=== PATIENT | male | born 1965 | race Hispanic/Latino ===

== ENCOUNTER 2018-01-21 18:30 | Inpatient (IN) | payer BC ==
[2018-01-21 22:22] VITALS: BMI 23.7
--- NOTE | 2018-01-21 23:49 | CP.PCM.HP ---
History of Present Illness - History of Present Illness History of Present Illness: CC: IV abx after PNA and L pleural effusion HPI: This is a 52 y/o male with HLD, hypothyroid, and bipolar disorder who was brought here from [facility] where he was being worked up and treated for a PNA and L pleural effusion. He was found to be positive for Mycoplasma IgM, sputum positive for S. aureus, and tissue cultures with S. viridians. Patient had a thoracotomy with decortication and empyema evacuation. He is here for continuation of abx per the following schedule: Zosyn 3.375 grams IV Q8H for 14 days (stop 02/14/2018) Azithromycin 500 mg PO daily for 10 days (stop 01/30/2018) Patient has no c/c at this time. Denies f/c/n/v/d. ROS: 14 systems reviewed, negative other than HPI MHx: HLD, hypothyroid, bipolar SHx: L thoracotomy, recent Allergies: NKDA, some food allergies Medications: Per d/c med rec Family Hx: F- HTN, M- cancer Social Hx: Lives alone, no tobacco, no EtOH Present on Admission - Present on Admission Any Indicators Present on Admission: No Past Patient History - Past Medical History & Family History Past Medical History?: Yes - Past Social History Smoking Status: Former Smoker - CARDIAC Hx Cardiac Disorders: Yes Hx Hypercholesterolemia: Yes - PULMONARY Hx Respiratory Disorders: No Other/Comment: s/p chest tube - NEUROLOGICAL Hx Neurological Disorder: No - HEENT Hx HEENT Problems: No - RENAL Hx Chronic Kidney Disease: No - ENDOCRINE/METABOLIC Hx Hypothyroidism: Yes - HEMATOLOGICAL/ONCOLOGICAL Hx Blood Disorders: No Hx Anemia: Yes Hx Blood Transfusions: Yes - INTEGUMENTARY Hx Dermatological Problems: No - MUSCULOSKELETAL/RHEUMATOLOGICAL Hx Falls: No - GASTROINTESTINAL Hx Gastrointestinal Disorders: No - GENITOURINARY/GYNECOLOGICAL Hx Genitourinary Disorders: No - PSYCHIATRIC Hx Psychophysiologic Disorder: Yes Hx Bipolar Disorder: Yes Hx Substance Use: No - SURGICAL HISTORY Hx Surgeries: No - ANESTHESIA Hx Anesthesia: Yes Hx Anesthesia Reactions: No Hx Malignant Hyperthermia: No Meds Allergies/Adverse Reactions: Allergies Allergy/AdvReac Type Severity Reaction Status Date / Time lentils Allergy Verified 01/12/18 18:02 peanut Allergy Verified 01/12/18 18:02 peas Allergy Verified 01/12/18 18:02 soybean Allergy Verified 01/12/18 18:02 [place] Allergy Uncoded 01/12/18 18:02 Physical Exam - Constitutional Appears: No Acute Distress - Head Exam Head Exam: ATRAUMATIC, NORMOCEPHALIC - Eye Exam Eye Exam: EOMI, PERRL - ENT Exam ENT Exam: Mucous Membranes Moist - Respiratory Exam Respiratory Exam: Rhonchi, NORMAL BREATHING PATTERN - Cardiovascular Exam Cardiovascular Exam: REGULAR RHYTHM, +S1, +S2 - GI/Abdominal Exam GI & Abdominal Exam: Normal Bowel Sounds, Soft - Extremities Exam Extremities exam: Positive for: full ROM, normal inspection - Neurological Exam Neurological exam: Alert, CN II-XII Intact, Oriented x3 - Psychiatric Exam Psychiatric exam: Normal Affect, Normal Mood - Skin Skin Exam: Dry, Warm Results - Vital Signs Recent Vital Signs: Last Vital Signs Temp 98.1 F 01/21/18 22:46 Pulse 60 01/21/18 22:46 Resp 20 01/21/18 22:46 BP 137/63 01/21/18 22:46 Pulse Ox 97 01/21/18 22:46 Assessment & Plan (1) Pneumonia Assessment and Plan: 52 y/o male with hypothyroid, HLD, and bipolar disorder who comes for IV abx treatment to TCU. -Continue Azithro PO and Zosyn IV per schedule specified in d/c summary and in this HPI -Duonebs PRN -Pain control per scale -Cont home HLD and hypothyroid medications -Patient was told to start Fe treatment for anemia; can be started in next few days if o/w stable -CBC and CMP to f/u on WC, Na, and LFTs -SQ lovenox for DVT PPx Status: Resolved (2) Pleural effusion Status: Resolved (3) DVT prophylaxis Status: Acute
[2018-01-22] MEDS ORDERED: Piperacillin/Tazobact 3.375 GM in Sodium Chloride 0.9% 100 ML IVPB SCH
[2018-01-22] MEDS: Oxycodone/Acetaminophen 5/325 mg Tab PO PRN ×4 (00:11→21:07)
[2018-01-22] MEDS: QUETIAPINE 400 MG PO SCH ×2 (00:32→21:03)
[2018-01-22] MEDS: QUETIAPINE 50 MG PO SCH ×2 (00:32→21:03)
[2018-01-22] MEDS: Piperacillin/Tazobact 3.375 GM in Sodium Chloride 0.9% 100 ML IVPB SCH ×3 (01:01→16:43)
[2018-01-22] MEDS: Albuterol-Ipratrop 3 mg / 0.5 (3 ml) UD INH SCH ×6 (01:16→19:26)
[2018-01-22 06:00] LABS: HEMOGLOBIN 8.6 g/dL (12.0-18.0); MEAN CORPUSCULAR HEMOGLOBIN 26.3 pg (27.0-31.0); MEAN CORPUSCULAR HGB CONC 31.7 g/dL (33.0-37.0); RBC 3.25 Mil/uL (4.40-5.90); RED CELL DISTRIBUTION WIDTH 17.8 % (11.5-14.5); WHITE BLOOD COUNT 5.7 K/uL (4.8-10.8)
[2018-01-22 06:19] LABS: ALB/GLOB RATIO 0.7 (1.0-2.1); ALBUMIN 2.2 g/dL (3.5-5.0); ALT/SGPT 53 U/L (21-72); AST/SGOT 51 U/L (17-59); BLOOD UREA NITROGEN 5 mg/dl (9-20); GFR NON-AFRICAN AMERICAN > 60
[2018-01-22] MEDS: Levothyroxine 175 MCG TAB PO SCH (07:30)
[2018-01-22] MEDS: Lactobacillus Acidophilus 500 MU Cap PO SCH ×2 (08:25→16:39)
[2018-01-22] MEDS: Enoxaparin 40 mg Syringe SC SCH (08:26)
[2018-01-22] MEDS: FATTY ACIDS PO SCH ×2 (08:27→16:40)
[2018-01-22] MEDS: OMEGA PO SCH ×2 (08:27→16:40)
[2018-01-22] MEDS: FISH OIL PO SCH ×2 (08:27→16:40)
[2018-01-22] MEDS ORDERED: LAMOTRIGINE 400 MG PO SCH (09:00)
[2018-01-22] MEDS ORDERED: NIACIN 1000 MG PO SCH (09:00)
[2018-01-22] MEDS: NIACINAMIDE 500 MG TAB PO SCH (12:57)
[2018-01-22] MEDS: Pantoprazole 40 mg EC Tab PO SCH (12:58)
--- NOTE | 2018-01-22 14:44 | CP.PCM.PN ---
Subjective - Date & Time of Evaluation Date of Evaluation: 01/22/18 Time of Evaluation: 13:00 - Subjective Subjective: Patient seen and examined. Feeling better although still appeared weak and tired. Objective - Vital Signs/Intake and Output Vital Signs (last 24 hours): Temp Pulse Resp BP Pulse Ox 96.6 F L 90 20 120/74 98 01/22/18 09:09 01/22/18 13:06 01/22/18 09:09 01/22/18 09:09 01/22/18 13:06 - Medications Medications: Current Medications Albuterol/Ipratropium (Duoneb 3 Mg/0.5 Mg (3 Ml) Ud) 3 ml INH RQ4 [facility] Last Admin: 01/22/18 11:21 Dose: 3 ml Azithromycin (Zithromax) 500 mg PO DAILY [facility] PRN Reason: Protocol Last Admin: 01/22/18 08:27 Dose: 500 mg Docusate Sodium (Colace) 100 mg PO BID [facility] Last Admin: 01/22/18 08:25 Dose: 100 mg Enoxaparin Sodium (Lovenox) 40 mg SC DAILY [facility] PRN Reason: Protocol Last Admin: 01/22/18 08:26 Dose: 40 mg Fenofibrate (Tricor) 145 mg PO QPM [facility] Home Med ([place]-3 Fatty Acids/Fish Oil [Fish Oil 1,000 Mg Capsule]) 2 cap PO BID [facility] Last Admin: 01/22/18 08:27 Dose: 2 cap Home Med (Quetiapine [Seroquel Xr]) 400 mg PO HS [facility] Last Admin: 01/22/18 00:32 Dose: 400 mg Home Med (Quetiapine [Seroquel Xr]) 50 mg PO HS [facility] Last Admin: 01/22/18 00:32 Dose: 50 mg Piperacillin Sod/Tazobactam (Sod 3.375 gm/ Sodium Chloride) 100 mls @ 100 mls/ hr IVPB Q8H [facility] PRN Reason: Protocol Last Admin: 01/22/18 08:25 Dose: 100 mls/hr Lactobacillus Acidophilus (Bacid Acidophilus) 1 cap PO BID [facility] Last Admin: 01/22/18 08:25 Dose: 1 cap Lamotrigine (Lamictal) 400 mg PO DAILY [facility] Last Admin: 01/22/18 08:26 Dose: 400 mg Levothyroxine Sodium (Synthroid) 175 mcg PO DAILY@0630 [facility] Last Admin: 01/22/18 07:30 Dose: 175 mcg Montelukast Sodium (Singulair) 10 mg PO [facility] Niacinamide (Niacinamide) 1,000 mg PO DAILY [facility] Last Admin: 01/22/18 12:57 Dose: 1,000 mg Oxycodone/Acetaminophen (Percocet 5/325 Mg Tab) 1 tab PO Q4 PRN PRN Reason: Pain, moderate (4-7) Stop: 01/24/18 23:52 Last Admin: 01/22/18 08:27 Dose: 1 tab Oxycodone/Acetaminophen (Percocet 5/325 Mg Tab) 2 tab PO Q4H PRN PRN Reason: Pain, severe (8-10) Stop: 01/24/18 23:52 Last Admin: 01/22/18 14:13 Dose: 2 tab Pantoprazole Sodium (Protonix Ec Tab) 40 mg PO DAILY [facility] Last Admin: 01/22/18 12:58 Dose: 40 mg - Labs Labs: 01/22/18 05:47 01/22/18 05:47 - Constitutional Appears: No Acute Distress - Head Exam Head Exam: ATRAUMATIC - Eye Exam Eye Exam: absent: Scleral icterus - ENT Exam ENT Exam: Mucous Membranes Moist - Neck Exam Neck Exam: absent: Meningismus - Respiratory Exam Respiratory Exam: Decreased Breath Sounds. absent: Wheezes, Respiratory Distress - Cardiovascular Exam Cardiovascular Exam: REGULAR RHYTHM, +S1, +S2 - GI/Abdominal Exam GI & Abdominal Exam: Soft. absent: Tenderness - Rectal Exam Rectal Exam: Deferred - Extremities Exam Extremities Exam: Pedal Edema - Neurological Exam Neurological Exam: Alert, Oriented x3 - Psychiatric Exam Psychiatric exam: Normal Affect - Skin Skin Exam: Dry, Intact Assessment and Plan - Assessment and Plan (Free Text) Assessment: 52 yo male with history of Bipolar DO, Hypothyroid and HLD was transferred from [facility] after thoracotomy with decortication and empyema evacuation for purpose of continuation of IV antibiotics. He was found to be positive for Mycoplasma IgM in the blood, Stap aureus in sputum culture and Strep viridans in lung tissue culture. He was started on IV Zosyn (to DC on 02/14/18) and PO Zithromax (DC on 01/30/18). 1. Pneumonia with Empyema left lung empyema drained on 01/16/18 left lung decorticated, culture grew Strep Viridans continue IV Zosyn and PO Zithromax 2. Hypothyroid continue Levothyroxine 175mcg PO daily 3. Bipolar DO continue Seroquel XR 450mg PO HS
[2018-01-23] MEDS: Albuterol-Ipratrop 3 mg / 0.5 (3 ml) UD INH SCH ×7 (00:12→23:33)
[2018-01-23] MEDS: Piperacillin/Tazobact 3.375 GM in Sodium Chloride 0.9% 100 ML IVPB SCH ×4 (01:09→20:26)
[2018-01-23] MEDS: Levothyroxine 175 MCG TAB PO SCH (05:56)
[2018-01-23] MEDS: Oxycodone/Acetaminophen 5/325 mg Tab PO PRN ×2 (09:14→16:40)
[2018-01-23] MEDS: Lactobacillus Acidophilus 500 MU Cap PO SCH ×2 (09:15→17:21)
[2018-01-23] MEDS: FISH OIL PO SCH ×2 (09:16→17:21)
[2018-01-23] MEDS: NIACINAMIDE 500 MG TAB PO SCH (09:16)
[2018-01-23] MEDS: OMEGA PO SCH ×2 (09:16→17:21)
[2018-01-23] MEDS: FATTY ACIDS PO SCH ×2 (09:16→17:21)
[2018-01-23] MEDS: Pantoprazole 40 mg EC Tab PO SCH (09:21)
[2018-01-23] MEDS: Enoxaparin 40 mg Syringe SC SCH (11:08)
[2018-01-23] MEDS: QUETIAPINE 400 MG PO SCH (21:18)
[2018-01-23] MEDS: QUETIAPINE 50 MG PO SCH (21:19)
[2018-01-24] MEDS: Oxycodone/Acetaminophen 5/325 mg Tab PO PRN ×4 (04:34→22:14)
[2018-01-24] MEDS: Piperacillin/Tazobact 3.375 GM in Sodium Chloride 0.9% 100 ML IVPB SCH ×3 (04:37→22:00)
[2018-01-24] MEDS: Albuterol-Ipratrop 3 mg / 0.5 (3 ml) UD INH SCH ×5 (04:55→19:23)
[2018-01-24] MEDS: Levothyroxine 175 MCG TAB PO SCH (06:31)
[2018-01-24] MEDS: Lactobacillus Acidophilus 500 MU Cap PO SCH ×2 (08:39→16:27)
[2018-01-24] MEDS: Enoxaparin 40 mg Syringe SC SCH (08:40)
[2018-01-24] MEDS: NIACINAMIDE 500 MG TAB PO SCH (08:41)
[2018-01-24] MEDS: FATTY ACIDS PO SCH ×2 (08:42→16:28)
[2018-01-24] MEDS: OMEGA PO SCH ×2 (08:42→16:28)
[2018-01-24] MEDS: FISH OIL PO SCH ×2 (08:42→16:28)
[2018-01-24] MEDS: Pantoprazole 40 mg EC Tab PO SCH (08:55)
[2018-01-24] MEDS: QUETIAPINE 400 MG PO SCH (22:06)
[2018-01-24] MEDS: QUETIAPINE 50 MG PO SCH (22:06)
[2018-01-25] MEDS: Albuterol-Ipratrop 3 mg / 0.5 (3 ml) UD INH SCH ×7 (00:29→23:33)
[2018-01-25] MEDS: Piperacillin/Tazobact 3.375 GM in Sodium Chloride 0.9% 100 ML IVPB SCH ×3 (05:09→20:36)
[2018-01-25] MEDS: Levothyroxine 175 MCG TAB PO SCH (06:19)
[2018-01-25] MEDS: Lactobacillus Acidophilus 500 MU Cap PO SCH ×2 (08:41→16:43)
[2018-01-25] MEDS: FISH OIL PO SCH ×2 (08:42→16:43)
[2018-01-25] MEDS: Enoxaparin 40 mg Syringe SC SCH (08:42)
[2018-01-25] MEDS: OMEGA PO SCH ×2 (08:42→16:43)
[2018-01-25] MEDS: Oxycodone/Acetaminophen 5/325 mg Tab PO PRN ×3 (08:42→19:58)
[2018-01-25] MEDS: FATTY ACIDS PO SCH ×2 (08:42→16:43)
[2018-01-25] MEDS: Pantoprazole 40 mg EC Tab PO SCH (08:43)
[2018-01-25] MEDS: NIACINAMIDE 500 MG TAB PO SCH (08:44)
[2018-01-25] MEDS: QUETIAPINE 400 MG PO SCH (21:28)
[2018-01-25] MEDS: QUETIAPINE 50 MG PO SCH (21:28)
[2018-01-26] MEDS: Albuterol-Ipratrop 3 mg / 0.5 (3 ml) UD INH SCH ×6 (04:15→23:59)
[2018-01-26] MEDS: Piperacillin/Tazobact 3.375 GM in Sodium Chloride 0.9% 100 ML IVPB SCH ×3 (05:22→20:37)
[2018-01-26] MEDS: Oxycodone/Acetaminophen 5/325 mg Tab PO PRN ×4 (05:32→20:43)
[2018-01-26] MEDS: Levothyroxine 175 MCG TAB PO SCH (05:33)
[2018-01-26] MEDS: Lactobacillus Acidophilus 500 MU Cap PO SCH ×2 (08:43→17:11)
[2018-01-26] MEDS: Enoxaparin 40 mg Syringe SC SCH (08:44)
[2018-01-26] MEDS: OMEGA PO SCH ×2 (08:45→17:11)
[2018-01-26] MEDS: FISH OIL PO SCH ×2 (08:45→17:11)
[2018-01-26] MEDS: FATTY ACIDS PO SCH ×2 (08:45→17:11)
[2018-01-26] MEDS: NIACINAMIDE 500 MG TAB PO SCH (08:45)
[2018-01-26] MEDS: Pantoprazole 40 mg EC Tab PO SCH (08:48)
--- NOTE | 2018-01-26 15:57 | CP.PCM.CON ---
History of Present Illness - History of Present Illness History of Present Illness: 52 year old male with deconditioning, with generalized weakness status post thoracotomy, empyema evacuation, HLD, hypothyroidism, Bipolar disorder and pleural effusion Review of Systems - Musculoskeletal Musculoskeletal: Abnormal Gait, Muscle Weakness Past Patient History - Past Medical History & Family History Past Medical History?: Yes - Past Social History Smoking Status: Former Smoker - CARDIAC Hx Cardiac Disorders: Yes Hx Hypercholesterolemia: Yes - PULMONARY Hx Respiratory Disorders: No Other/Comment: s/p chest tube - NEUROLOGICAL Hx Neurological Disorder: No - HEENT Hx HEENT Problems: No - RENAL Hx Chronic Kidney Disease: No - ENDOCRINE/METABOLIC Hx Hypothyroidism: Yes - HEMATOLOGICAL/ONCOLOGICAL Hx Blood Disorders: No Hx Anemia: Yes Hx Blood Transfusions: Yes - INTEGUMENTARY Hx Dermatological Problems: No - MUSCULOSKELETAL/RHEUMATOLOGICAL Hx Falls: No - GASTROINTESTINAL Hx Gastrointestinal Disorders: No - GENITOURINARY/GYNECOLOGICAL Hx Genitourinary Disorders: No - PSYCHIATRIC Hx Psychophysiologic Disorder: Yes Hx Bipolar Disorder: Yes Hx Substance Use: No - SURGICAL HISTORY Hx Surgeries: No - ANESTHESIA Hx Anesthesia: Yes Hx Anesthesia Reactions: No Hx Malignant Hyperthermia: No Meds Allergies/Adverse Reactions: Allergies Allergy/AdvReac Type Severity Reaction Status Date / Time lentils Allergy Verified 01/12/18 18:02 peanut Allergy Verified 01/12/18 18:02 peas Allergy Verified 01/12/18 18:02 soybean Allergy Verified 01/12/18 18:02 [place] Allergy Uncoded 01/12/18 18:02 - Medications Medications: Current Medications Albuterol/Ipratropium (Duoneb 3 Mg/0.5 Mg (3 Ml) Ud) 3 ml INH RQ4 [facility] Last Admin: 01/26/18 15:26 Dose: 3 ml Azithromycin (Zithromax) 500 mg PO DAILY [facility] PRN Reason: Protocol Last Admin: 01/26/18 08:43 Dose: 500 mg Docusate Sodium (Colace) 100 mg PO BID [facility] Last Admin: 01/26/18 08:43 Dose: 100 mg Enoxaparin Sodium (Lovenox) 40 mg SC DAILY [facility] PRN Reason: Protocol Last Admin: 01/26/18 08:44 Dose: 40 mg Fenofibrate (Tricor) 145 mg PO QPM [facility] Last Admin: 01/25/18 18:08 Dose: 145 mg Home Med ([place]-3 Fatty Acids/Fish Oil [Fish Oil 1,000 Mg Capsule]) 2 cap PO BID [facility] Last Admin: 01/26/18 08:45 Dose: 2 cap Home Med (Quetiapine [Seroquel Xr]) 400 mg PO [facility] Last Admin: 01/25/18 21:28 Dose: 400 mg Home Med (Quetiapine [Seroquel Xr]) 50 mg PO [facility] Last Admin: 01/25/18 21:28 Dose: 50 mg Piperacillin Sod/Tazobactam (Sod 3.375 gm/ Sodium Chloride) 100 mls @ 100 mls/ hr IVPB Q8@0500,1300,2100 [facility] PRN Reason: Protocol Last Admin: 01/26/18 12:38 Dose: 100 mls/hr Lactobacillus Acidophilus (Bacid Acidophilus) 1 cap PO BID [facility] Last Admin: 01/26/18 08:43 Dose: 1 cap Lactulose (Enulose) 20 gm PO DAILY PRN PRN Reason: Constipation Last Admin: 01/26/18 08:43 Dose: 20 gm Lamotrigine (Lamictal) 400 mg PO DAILY [facility] Last Admin: 01/26/18 08:44 Dose: 400 mg Levothyroxine Sodium (Synthroid) 175 mcg PO DAILY@0630 [facility] Last Admin: 01/26/18 05:33 Dose: 175 mcg Montelukast Sodium (Singulair) 10 mg PO [facility] Last Admin: 01/25/18 21:28 Dose: 10 mg Niacinamide (Niacinamide) 1,000 mg PO DAILY [facility] Last Admin: 01/26/18 08:45 Dose: 1,000 mg Oxycodone/Acetaminophen (Percocet 5/325 Mg Tab) 1 tab PO Q4 PRN PRN Reason: Pain, moderate (4-7) Stop: 01/28/18 07:27 Last Admin: 01/26/18 14:43 Dose: 1 tab Oxycodone/Acetaminophen (Percocet 5/325 Mg Tab) 2 tab PO Q6 PRN PRN Reason: Pain, severe (8-10) Stop: 01/28/18 07:27 Last Admin: 01/25/18 19:58 Dose: 2 tab Pantoprazole Sodium (Protonix Ec Tab) 40 mg PO DAILY [facility] Last Admin: 01/26/18 08:48 Dose: 40 mg Physical Exam - Head Exam Head Exam: ATRAUMATIC, NORMAL INSPECTION, NORMOCEPHALIC - Eye Exam Eye Exam: EOMI, Normal appearance, PERRL Pupil Exam: NORMAL ACCOMODATION - ENT Exam ENT Exam: Mucous Membranes Moist, Normal Exam - Neck Exam Neck exam: Positive for: Normal Inspection - Respiratory Exam Respiratory Exam: Clear to Auscultation Bilateral, NORMAL BREATHING PATTERN - Cardiovascular Exam Cardiovascular Exam: REGULAR RHYTHM - GI/Abdominal Exam GI & Abdominal Exam: Normal Bowel Sounds - Rectal Exam Rectal Exam: NORMAL INSPECTION - Exam External exam: NORMAL EXTERNAL EXAM - Extremities Exam Extremities exam: Positive for: normal inspection Additional comments: generalized weakness - Back Exam Back exam: NORMAL INSPECTION - Neurological Exam Neurological exam: Alert, CN II-XII Intact - Psychiatric Exam Psychiatric exam: Normal Affect, Normal Mood - Skin Skin Exam: Dry, Intact Results - Vital Signs Recent Vital Signs: Last Vital Signs Temp 97.9 F 01/26/18 09:00 Pulse 84 01/26/18 09:00 Resp 18 01/26/18 09:00 BP 123/73 01/26/18 09:00 Pulse Ox 96 01/26/18 09:00 - Labs Result Diagrams: 01/22/18 05:47 01/22/18 05:47 Assessment & Plan (1) DVT prophylaxis Status: Acute (2) Hyponatremia Status: Acute (3) Anemia Status: Chronic (4) Cavitary lesion of lung Status: Resolved (5) Pleural effusion Assessment and Plan: plan for physical, occupational, rec therapy for range of motion, strengthening , transfers and gait training covering for Dr De Anda Status: Resolved (6) Pneumonia Status: Resolved
--- NOTE | 2018-01-26 16:04 | CP.PCM.PN ---
Subjective - Date & Time of Evaluation Date of Evaluation: 01/26/18 Time of Evaluation: 11:20 - Subjective Subjective: no acute complaints of neck or back pain Objective - Vital Signs/Intake and Output Vital Signs (last 24 hours): Temp Pulse Resp BP Pulse Ox 97.9 F 84 18 123/73 96 01/26/18 09:00 01/26/18 09:00 01/26/18 09:00 01/26/18 09:00 01/26/18 09:00 - Medications Medications: Current Medications Albuterol/Ipratropium (Duoneb 3 Mg/0.5 Mg (3 Ml) Ud) 3 ml INH RQ4 [facility] Last Admin: 01/26/18 15:26 Dose: 3 ml Azithromycin (Zithromax) 500 mg PO DAILY [facility] PRN Reason: Protocol Last Admin: 01/26/18 08:43 Dose: 500 mg Docusate Sodium (Colace) 100 mg PO BID [facility] Last Admin: 01/26/18 08:43 Dose: 100 mg Enoxaparin Sodium (Lovenox) 40 mg SC DAILY [facility] PRN Reason: Protocol Last Admin: 01/26/18 08:44 Dose: 40 mg Fenofibrate (Tricor) 145 mg PO QPM [facility] Last Admin: 01/25/18 18:08 Dose: 145 mg Home Med ([place]-3 Fatty Acids/Fish Oil [Fish Oil 1,000 Mg Capsule]) 2 cap PO BID [facility] Last Admin: 01/26/18 08:45 Dose: 2 cap Home Med (Quetiapine [Seroquel Xr]) 400 mg PO HS [facility] Last Admin: 01/25/18 21:28 Dose: 400 mg Home Med (Quetiapine [Seroquel Xr]) 50 mg PO HS [facility] Last Admin: 01/25/18 21:28 Dose: 50 mg Piperacillin Sod/Tazobactam (Sod 3.375 gm/ Sodium Chloride) 100 mls @ 100 mls/ hr IVPB Q8@0500,1300,2100 [facility] PRN Reason: Protocol Last Admin: 01/26/18 12:38 Dose: 100 mls/hr Lactobacillus Acidophilus (Bacid Acidophilus) 1 cap PO BID [facility] Last Admin: 01/26/18 08:43 Dose: 1 cap Lactulose (Enulose) 20 gm PO DAILY PRN PRN Reason: Constipation Last Admin: 01/26/18 08:43 Dose: 20 gm Lamotrigine (Lamictal) 400 mg PO DAILY [facility] Last Admin: 01/26/18 08:44 Dose: 400 mg Levothyroxine Sodium (Synthroid) 175 mcg PO DAILY@0630 [facility] Last Admin: 01/26/18 05:33 Dose: 175 mcg Montelukast Sodium (Singulair) 10 mg PO [facility] Last Admin: 01/25/18 21:28 Dose: 10 mg Niacinamide (Niacinamide) 1,000 mg PO DAILY [facility] Last Admin: 01/26/18 08:45 Dose: 1,000 mg Oxycodone/Acetaminophen (Percocet 5/325 Mg Tab) 1 tab PO Q4 PRN PRN Reason: Pain, moderate (4-7) Stop: 01/28/18 07:27 Last Admin: 01/26/18 14:43 Dose: 1 tab Oxycodone/Acetaminophen (Percocet 5/325 Mg Tab) 2 tab PO Q6 PRN PRN Reason: Pain, severe (8-10) Stop: 01/28/18 07:27 Last Admin: 01/25/18 19:58 Dose: 2 tab Pantoprazole Sodium (Protonix Ec Tab) 40 mg PO DAILY [facility] Last Admin: 01/26/18 08:48 Dose: 40 mg - Labs Labs: 01/22/18 05:47 01/22/18 05:47 - Head Exam Head Exam: ATRAUMATIC, NORMAL INSPECTION, NORMOCEPHALIC - Eye Exam Eye Exam: EOMI, Normal appearance, PERRL Pupil Exam: NORMAL ACCOMODATION - ENT Exam ENT Exam: Mucous Membranes Moist, Normal Exam - Neck Exam Neck Exam: Full ROM, Normal Inspection - Respiratory Exam Respiratory Exam: Clear to Ausculation Bilateral, NORMAL BREATHING PATTERN - Cardiovascular Exam Cardiovascular Exam: REGULAR RHYTHM - GI/Abdominal Exam GI & Abdominal Exam: Soft, Normal Bowel Sounds - Rectal Exam Rectal Exam: NORMAL INSPECTION - Exam External exam: NORMAL EXTERNAL EXAM - Extremities Exam Extremities Exam: Full ROM, Normal Capillary Refill, Normal Inspection - Back Exam Back Exam: NORMAL INSPECTION - Neurological Exam Neurological Exam: Alert, Awake Neuro motor strength exam: Left Upper Extremity: 3, Right Upper Extremity: 3, Left Lower Extremity: 3, Right Lower Extremity: 3 - Psychiatric Exam Psychiatric exam: Normal Affect, Normal Mood - Skin Skin Exam: Dry, Intact, Normal Color Assessment and Plan (1) DVT prophylaxis Status: Acute (2) Hyponatremia Status: Acute (3) Anemia Status: Chronic (4) Cavitary lesion of lung Status: Resolved (5) Pleural effusion Assessment & Plan: plan for range of motion, strengthening, transfers and gait training covering for Dr louis , monitor skin and vital sign Status: Resolved (6) Pneumonia Status: Resolved
[2018-01-26] MEDS ORDERED: POLYETHYLENE GLYCOL 3350 17 GM/Dose PACKET PO STA (17:31)
[2018-01-26 19:31] VITALS: RESP 20
[2018-01-26] MEDS: QUETIAPINE 50 MG PO SCH (21:45)
[2018-01-26] MEDS: QUETIAPINE 400 MG PO SCH (21:45)
[2018-01-27] MEDS: Albuterol-Ipratrop 3 mg / 0.5 (3 ml) UD INH SCH ×5 (05:09→21:03)
[2018-01-27] MEDS: Piperacillin/Tazobact 3.375 GM in Sodium Chloride 0.9% 100 ML IVPB SCH ×3 (05:22→21:30)
[2018-01-27] MEDS: Oxycodone/Acetaminophen 5/325 mg Tab PO PRN ×3 (05:33→23:31)
[2018-01-27] MEDS: Levothyroxine 175 MCG TAB PO SCH (05:33)
[2018-01-27] MEDS: Lactobacillus Acidophilus 500 MU Cap PO SCH ×2 (08:58→17:42)
[2018-01-27] MEDS: Enoxaparin 40 mg Syringe SC SCH (09:00)
[2018-01-27] MEDS: FATTY ACIDS PO SCH ×2 (09:01→17:43)
[2018-01-27] MEDS: NIACINAMIDE 500 MG TAB PO SCH (09:01)
[2018-01-27] MEDS: OMEGA PO SCH ×2 (09:01→17:43)
[2018-01-27] MEDS: FISH OIL PO SCH ×2 (09:01→17:43)
[2018-01-27] MEDS: Pantoprazole 40 mg EC Tab PO SCH (09:02)
--- NOTE | 2018-01-27 13:56 | CP.PCM.PN ---
Subjective - Date & Time of Evaluation Date of Evaluation: 01/27/18 Time of Evaluation: 13:00 - Subjective Subjective: Patient seen and examined. Claimed he was feeling fine. Objective - Vital Signs/Intake and Output Vital Signs (last 24 hours): Temp Pulse Resp BP Pulse Ox 97.9 F 79 20 117/71 99 01/27/18 08:19 01/27/18 08:19 01/27/18 08:19 01/27/18 08:19 01/27/18 08:19 - Medications Medications: Current Medications Albuterol/Ipratropium (Duoneb 3 Mg/0.5 Mg (3 Ml) Ud) [address] [facility] Last Admin: 01/27/18 11:28 Dose: 3 ml Azithromycin (Zithromax) [address] [facility] PRN Reason: Protocol Last Admin: 01/27/18 09:02 Dose: 500 mg Docusate Sodium (Colace) [address] [facility] Last Admin: 01/27/18 08:59 Dose: 100 mg Enoxaparin Sodium (Lovenox) [address] [facility] PRN Reason: Protocol Last Admin: 01/27/18 09:00 Dose: 40 mg Fenofibrate (Tricor) [address] [facility] Last Admin: 01/26/18 17:11 Dose: 145 mg Home Med ([place]-3 Fatty Acids/Fish Oil [Fish Oil 1,000 Mg Capsule]) [address] [facility] Last Admin: 01/27/18 09:01 Dose: 2 cap Home Med (Quetiapine [Seroquel Xr]) [address] [facility] Last Admin: 01/26/18 21:45 Dose: 400 mg Home Med (Quetiapine [Seroquel Xr]) [address] [facility] Last Admin: 01/26/18 21:45 Dose: 50 mg Piperacillin Sod/Tazobactam (Sod 3.375 gm/ Sodium Chloride) 100 mls @ 100 mls/ hr IVPB Q8@0500,1300,2100 [facility] PRN Reason: Protocol Last Admin: 01/27/18 13:26 Dose: 100 mls/hr Lactobacillus Acidophilus (Bacid Acidophilus) [address] [facility] Last Admin: 01/27/18 08:58 Dose: 1 cap Lactulose (Enulose) 20 gm PO DAILY PRN PRN Reason: Constipation Last Admin: 01/26/18 08:43 Dose: 20 gm Lamotrigine (Lamictal) [address] [facility] Last Admin: 01/27/18 08:59 Dose: 400 mg Levothyroxine Sodium (Synthroid) 175 mcg PO DAILY@0630 [facility] Last Admin: 01/27/18 05:33 Dose: 175 mcg Montelukast Sodium (Singulair) [address] [facility] Last Admin: 01/26/18 21:57 Dose: 10 mg Niacinamide (Niacinamide) 1,[address] [facility] Last Admin: 01/27/18 09:01 Dose: 1,000 mg Oxycodone/Acetaminophen (Percocet 5/325 Mg Tab) 1 tab PO Q4 PRN PRN Reason: Pain, moderate (4-7) Stop: 01/28/18 07:27 Last Admin: 01/27/18 05:33 Dose: 1 tab Oxycodone/Acetaminophen (Percocet 5/325 Mg Tab) 2 tab PO Q6 PRN PRN Reason: Pain, severe (8-10) Stop: 01/28/18 07:27 Last Admin: 01/26/18 20:43 Dose: 2 tab Pantoprazole Sodium (Protonix Ec Tab) [address] [facility] Last Admin: 01/27/18 09:02 Dose: 40 mg - Labs Labs: 01/22/18 05:47 01/22/18 05:47 - Constitutional Appears: No Acute Distress - Head Exam Head Exam: ATRAUMATIC - Eye Exam Eye Exam: absent: Scleral icterus - ENT Exam ENT Exam: Mucous Membranes Moist - Neck Exam Neck Exam: absent: Meningismus - Respiratory Exam Respiratory Exam: absent: Rales, Rhonchi, Wheezes, Respiratory Distress - Cardiovascular Exam Cardiovascular Exam: REGULAR RHYTHM, +S1, +S2 - GI/Abdominal Exam GI & Abdominal Exam: Soft. absent: Tenderness - Rectal Exam Rectal Exam: Deferred - Extremities Exam Extremities Exam: absent: Calf Tenderness, Pedal Edema - Back Exam Back Exam: absent: tenderness - Neurological Exam Neurological Exam: Alert, Oriented x3 - Psychiatric Exam Psychiatric exam: Normal Affect - Skin Skin Exam: Dry, Intact Assessment and Plan - Assessment and Plan (Free Text) Assessment: 52 yo male with history of Bipolar DO, Hypothyroid and HLD was [facility] after thoracotomy with decortication and empyema evacuation for purpose of continuation of IV antibiotics. He was found to be positive for Mycoplasma IgM in the blood, Stap aureus in sputum culture and Strep viridans in lung tissue culture. He was started on IV Zosyn (to DC on ) and PO Zithromax (DC on 01/30/18). 1. Pneumonia with Empyema left lung empyema drained on 01/16/18 left lung decorticated, culture grew Strep Viridans continue IV Zosyn and PO Zithromax 2. Hypothyroid continue Levothyroxine 175mcg PO daily TSH: 0.75 3. Bipolar DO continue Seroquel XR 450mg PO HS
[2018-01-27] MEDS: QUETIAPINE 400 MG PO SCH (21:30)
[2018-01-27] MEDS: QUETIAPINE 50 MG PO SCH (21:30)
[2018-01-28] MEDS: Albuterol-Ipratrop 3 mg / 0.5 (3 ml) UD INH SCH ×6 (00:10→19:22)
[2018-01-28] MEDS: Piperacillin/Tazobact 3.375 GM in Sodium Chloride 0.9% 100 ML IVPB SCH ×2 (05:41→13:38)
[2018-01-28] MEDS: Levothyroxine 175 MCG TAB PO SCH (05:41)
[2018-01-28 07:45] LABS: BLOOD UREA NITROGEN 6 mg/dl (9-20); GFR NON-AFRICAN AMERICAN > 60
[2018-01-28 07:51] LABS: EOS # 0.2 K/uL (0.0-0.7); EOS % 5.2 % (0.0-4.0); HEMOGLOBIN 9.1 g/dL (12.0-18.0); LYMPH # 0.9 K/uL (1.0-4.3); LYMPH % 20.2 % (20.0-40.0); MEAN CELL VOLUME 84.6 fl (80.0-94.0); MEAN CORPUSCULAR HGB CONC 31.9 g/dL (33.0-37.0); MEAN PLATELET VOLUME 6.9 fl (7.2-11.7); MONO # 0.5 K/uL (0.0-0.8); MONO % 11.4 % (0.0-10.0); NEUT # 2.8 K/uL (1.8-7.0); NEUT % 62.2 % (50.0-75.0); RBC 3.36 Mil/uL (4.40-5.90); RED CELL DISTRIBUTION WIDTH 18.5 % (11.5-14.5); WHITE BLOOD COUNT 4.6 K/uL (4.8-10.8)
[2018-01-28] MEDS: OMEGA PO SCH ×2 (08:31→16:31)
[2018-01-28] MEDS: FATTY ACIDS PO SCH ×2 (08:31→16:31)
[2018-01-28] MEDS: FISH OIL PO SCH ×2 (08:31→16:31)
[2018-01-28] MEDS: Lactobacillus Acidophilus 500 MU Cap PO SCH ×2 (08:31→16:30)
[2018-01-28] MEDS: Pantoprazole 40 mg EC Tab PO SCH (08:32)
[2018-01-28] MEDS: NIACINAMIDE 500 MG TAB PO SCH (08:33)
[2018-01-28] MEDS: Oxycodone/Acetaminophen 5/325 mg Tab PO PRN ×3 (09:11→20:35)
--- NOTE | 2018-01-28 09:25 | CP.PCM.CON ---
History of Present Illness - History of Present Illness History of Present Illness: Infectious Disease Consultation Note- asked to see this patient at the request of Hospitalist for help woth antibiotic management and pus drainage from the recent chest tube site. HPI- Say is a 52 year old male with PMH of Hypothyroidism, HLD and Bipolar DO who is transferred from [facility] for completion of IV antibiotics and rehab. Pt. was originally admitted to [facility] for cough and sob and was found to have left lung empyema and is s/p thoracotomy and decortication and empyema evacuation and CT placement and during that hospitalization he was found to be positive for mycopalsma IGM serology and his MSSA in sputum cx and Strep viridans in lung tissue culture and was seen by Dr. Horton ( ID doc there) and has been on zosyn and zithromax since then. I'm asked to evaluate the patient because pt. is noted to have purulent drainage from the small left lung opening site where he had the chest tube and hence to help with evaluation of this and abx management. Pt. explains he feels much better compared to when he was first admitted to the other hospital. He states he still has cough but with clear phlegm, denies any fever or chills, denies any sob, denies any diarrhea, denies any dysurea, denies any chest pain. Review of Systems - Review of Systems Review of Systems: ROS- denies any fever or chills, denies any FARRIS, + cough with clear phlegm, denies any sob, denies any chest pain, denies any nausea pr vomiting, denies any abd. pain, denies any dysurea, denies any diarrhea Past Patient History - Past Medical History & Family History Past Medical History?: Yes - Past Social History Smoking Status: Former Smoker - CARDIAC Hx Cardiac Disorders: Yes Hx Hypercholesterolemia: Yes - PULMONARY Hx Respiratory Disorders: No Hx Emphysema: Yes Other/Comment: s/p chest tube - NEUROLOGICAL Hx Neurological Disorder: No - HEENT Hx HEENT Problems: No - RENAL Hx Chronic Kidney Disease: No - ENDOCRINE/METABOLIC Hx Hypothyroidism: Yes - HEMATOLOGICAL/ONCOLOGICAL Hx Blood Disorders: No Hx Anemia: Yes Hx Blood Transfusions: Yes - INTEGUMENTARY Hx Dermatological Problems: No - MUSCULOSKELETAL/RHEUMATOLOGICAL Hx Falls: No - GASTROINTESTINAL Hx Gastrointestinal Disorders: No - GENITOURINARY/GYNECOLOGICAL Hx Genitourinary Disorders: No - PSYCHIATRIC Hx Psychophysiologic Disorder: Yes Hx Bipolar Disorder: Yes Hx Substance Use: No - SURGICAL HISTORY Hx Surgeries: No - ANESTHESIA Hx Anesthesia: Yes Hx Anesthesia Reactions: No Hx Malignant Hyperthermia: No Meds Allergies/Adverse Reactions: Allergies Allergy/AdvReac Type Severity Reaction Status Date / Time lentils Allergy Verified 01/12/18 18:02 peanut Allergy Verified 01/12/18 18:02 peas Allergy Verified 01/12/18 18:02 soybean Allergy Verified 01/12/18 18:02 [place] Allergy Uncoded 01/12/18 18:02 - Medications Medications: Current Medications Albuterol/Ipratropium (Duoneb 3 Mg/0.5 Mg (3 Ml) Ud) 3 ml INH RQ4 [facility] Last Admin: 01/28/18 07:35 Dose: 3 ml Azithromycin (Zithromax) 500 mg PO DAILY [facility] PRN Reason: Protocol Last Admin: 01/28/18 09:12 Dose: 500 mg Docusate Sodium (Colace) 100 mg PO BID [facility] Last Admin: 01/28/18 08:31 Dose: 100 mg Fenofibrate (Tricor) 145 mg PO QPM [facility] Last Admin: 01/27/18 17:43 Dose: 145 mg Home Med ([place]-3 Fatty Acids/Fish Oil [Fish Oil 1,000 Mg Capsule]) 2 cap PO BID [facility] Last Admin: 01/28/18 08:31 Dose: 2 cap Home Med (Quetiapine [Seroquel Xr]) 400 mg PO HS [facility] Last Admin: 01/27/18 21:30 Dose: 400 mg Home Med (Quetiapine [Seroquel Xr]) 50 mg PO HS [facility] Last Admin: 01/27/18 21:30 Dose: 50 mg Piperacillin Sod/Tazobactam (Sod 3.375 gm/ Sodium Chloride) 100 mls @ 100 mls/ hr IVPB Q8@0500,1300,2100 [facility] PRN Reason: Protocol Last Admin: 01/28/18 05:41 Dose: 100 mls/hr Lactobacillus Acidophilus (Bacid Acidophilus) 1 cap PO BID [facility] Last Admin: 01/28/18 08:31 Dose: 1 cap Lactulose (Enulose) 20 gm PO DAILY PRN PRN Reason: Constipation Last Admin: 01/26/18 08:43 Dose: 20 gm Lamotrigine (Lamictal) 400 mg PO DAILY [facility] Last Admin: 01/28/18 08:32 Dose: 400 mg Levothyroxine Sodium (Synthroid) 175 mcg PO DAILY@0630 [facility] Last Admin: 01/28/18 05:41 Dose: 175 mcg Montelukast Sodium (Singulair) 10 mg PO HS [facility] Last Admin: 01/27/18 21:30 Dose: 10 mg Niacinamide (Niacinamide) 1,000 mg PO DAILY [facility] Last Admin: 01/28/18 08:33 Dose: 1,000 mg Oxycodone/Acetaminophen (Percocet 5/325 Mg Tab) 1 tab PO Q4 PRN PRN Reason: for pain level 4-7 Stop: 01/31/18 09:23 Pantoprazole Sodium (Protonix Ec Tab) 40 mg PO DAILY [facility] Last Admin: 01/28/18 08:32 Dose: 40 mg Physical Exam - Constitutional Appears: No Acute Distress - Head Exam Head Exam: ATRAUMATIC - Eye Exam Eye Exam: EOMI - ENT Exam ENT Exam: Normal Oropharynx - Neck Exam Neck exam: Positive for: Full Rom - Respiratory Exam Additional comments: breath sounds heard B/L left base decreased breath sounds compared to right No wheezing left posterior previous chest tube site with small 2 cm opening with clear fluid discharge, no surrounding erythema, no malodor christine remain in place in superior aspect - Cardiovascular Exam Cardiovascular Exam: RRR, +S1, +S2 - GI/Abdominal Exam GI & Abdominal Exam: Normal Bowel Sounds, Soft Additional comments: Nt, ND - Extremities Exam Extremities exam: Positive for: normal inspection - Neurological Exam Neurological exam: Alert, Oriented x3 Results - Vital Signs Recent Vital Signs: Last Vital Signs Temp 98.1 F 01/28/18 07:42 Pulse 88 01/28/18 07:42 Resp 20 01/28/18 07:42 BP 120/74 01/28/18 07:42 Pulse Ox 97 01/28/18 07:42 - Labs Result Diagrams: 01/28/18 07:31 01/28/18 07:31 Labs: Laboratory Results - last 24 hr 01/28/18 01/28/18 07:31 07:31 WBC 4.6 L RBC 3.36 L Hgb 9.1 L Hct 28.5 L MCV 84.6 MCH 27.0 MCHC 31.9 L RDW 18.5 H Plt Count 479 H MPV 6.9 L Neut % (Auto) 62.2 Lymph % (Auto) 20.2 [place] % (Auto) 11.4 H Eos % (Auto) 5.2 H Baso % (Auto) 1.0 Neut # (Auto) 2.8 Lymph # (Auto) 0.9 L [place] # (Auto) 0.5 Eos # (Auto) 0.2 Baso # (Auto) 0.0 Sodium 136 Potassium 3.4 L Chloride 103 Carbon Dioxide 26 Anion Gap 10 BUN 6 L Creatinine 0.6 L Est GFR ( Amer) > 60 Est GFR (Non-Af Amer) > 60 Random Glucose 75 Calcium 8.0 L Microbiology 01/28/18 14:00 Chest Gram Stain - Final Microbiology 01/18/18 17:22 Pleural Fluid Gram Stain - Final 01/18/18 17:22 Pleural Fluid Body Fluid Culture - Final No growth. 01/16/18 Unknown Lung Gram Stain - Final 01/16/18 Unknown Lung Tissue Culture - Final Streptococcus Viridans 01/16/18 Unknown Lung Gram Stain - Final 01/16/18 Unknown Lung Tissue Culture - Final Streptococcus Viridans 01/14/18 21:09 Sputum Gram Stain - Final 01/14/18 21:09 Sputum Sputum Culture - Final Staphylococcus Aureus 01/12/18 20:10 Blood-Venous Blood Culture - Final 01/12/18 20:10 Blood-Venous Gram Stain - Final NO GROWTH AFTER 5 DAYS TEST NOT PERFORMED 01/12/18 20:00 Blood-Venous Blood Culture - Final 01/12/18 20:00 Blood-Venous Gram Stain - Final NO GROWTH AFTER 5 DAYS TEST NOT PERFORMED 01/18/18 17:22 Pleural Fluid Fungal Culture - Preliminary NO FUNGUS GROWTH IN 1 WEEK. 01/18/18 17:22 Other: Please Indicate Mycobacterial Culture - Preliminary Assessment & Plan (1) Pleural effusion Status: Resolved (2) Empyema Status: Acute - Assessment and Plan (Free Text) Assessment: A/P- 52 year old male s/p left lung thoracotomy with decortication and s/p empyema evacuation ith lung tissue cx strep viridans and sputum cx MSSA and + mycsoplasma IGM serology admitted to TCU for completion of IV antibiotics from [facility] with small amount of ? purulent discharge from the left posterior lung previous Ct site. afebrile normal wbc count Ct report noted blood cx - neg x 2 from [facility] sputum cx- MSSA from [facility] Lung tissue cx- Strep.Viridans Plan- check wound fluid cx. advise to continue with zithromx to treat the mycoplasma. advise to start IV vancomycin to trreat the MSSA in sputum cx. also advise to d/c zosyn and instead start ceftriaxone for the strep viridans treatment. keep vanco trough <15. all above d/w patient and he verbalizes full understanding of all above. Thank you for allowing met o take part in the care of this patient.
--- NOTE | 2018-01-28 11:11 | CP.PCM.CON ---
History of Present Illness - History of Present Illness History of Present Illness: Patient was seen and examined this AM during morning rounds. 43 y/o M with a history of Hyperlipidemia, Hypothyroidism, and Bipolar Disorder was transferred to our TCU facility from [facility] for continued IV antibiotic treatment and rehabilitation following a left-sided thoracotomy with decortication of an empyema. As per the patient, prior to hospitalization at [facility], he was visiting family in [place] and developed 1 week of cough, and 4 days of loose stools (nonbloody). He also reports decreased appetite at that time, which he attributes to recent dental work. Upon his return, patient stated that he went to urgent care because his cough worsened with some coughing fits, which he thought may have caused a rib fracture. Following this, he went to urgent care, was told he had a pleural effusion, and was sent to the ED. At [facility] serology was + for Mycoplasma IgM, sputum culture was + for Staph aureus, and lung tissue culture was + for strep viridans. At that time, he was started on IV Zosyn and PO Zithromax. Pulmonary team has been consulted because of some swelling above the site where the procedure was done as well as purulent draining at the site. - Patient denies any fever, chills, chest pain or dyspnea at this time. -Vitals: 98.1F, P-82bpm, BP-136/84 O2sat- 99% on room air Past Patient History - Past Medical History & Family History Past Medical History?: Yes - Past Social History Smoking Status: Former Smoker - CARDIAC Hx Cardiac Disorders: Yes Hx Hypercholesterolemia: Yes - PULMONARY Hx Respiratory Disorders: No Other/Comment: s/p chest tube - NEUROLOGICAL Hx Neurological Disorder: No - HEENT Hx HEENT Problems: No - RENAL Hx Chronic Kidney Disease: No - ENDOCRINE/METABOLIC Hx Hypothyroidism: Yes - HEMATOLOGICAL/ONCOLOGICAL Hx Blood Disorders: No Hx Anemia: Yes Hx Blood Transfusions: Yes - INTEGUMENTARY Hx Dermatological Problems: No - MUSCULOSKELETAL/RHEUMATOLOGICAL Hx Falls: No - GASTROINTESTINAL Hx Gastrointestinal Disorders: No - GENITOURINARY/GYNECOLOGICAL Hx Genitourinary Disorders: No - PSYCHIATRIC Hx Psychophysiologic Disorder: Yes Hx Bipolar Disorder: Yes Hx Substance Use: No - SURGICAL HISTORY Hx Surgeries: No - ANESTHESIA Hx Anesthesia: Yes Hx Anesthesia Reactions: No Hx Malignant Hyperthermia: No Meds Allergies/Adverse Reactions: Allergies Allergy/AdvReac Type Severity Reaction Status Date / Time lentils Allergy Verified 01/12/18 18:02 peanut Allergy Verified 01/12/18 18:02 peas Allergy Verified 01/12/18 18:02 soybean Allergy Verified 01/12/18 18:02 [place] Allergy Uncoded 01/12/18 18:02 - Medications Medications: Current Medications Albuterol/Ipratropium (Duoneb 3 Mg/0.5 Mg (3 Ml) Ud) 3 ml INH RQ4 [facility] Last Admin: 01/28/18 07:35 Dose: 3 ml Azithromycin (Zithromax) 500 mg PO DAILY [facility] PRN Reason: Protocol Last Admin: 01/28/18 09:12 Dose: 500 mg Docusate Sodium (Colace) 100 mg PO BID [facility] Last Admin: 01/28/18 08:31 Dose: 100 mg Fenofibrate (Tricor) 145 mg PO QPM [facility] Last Admin: 01/27/18 17:43 Dose: 145 mg Home Med ([place]-3 Fatty Acids/Fish Oil [Fish Oil 1,000 Mg Capsule]) 2 cap PO BID [facility] Last Admin: 01/28/18 08:31 Dose: 2 cap Home Med (Quetiapine [Seroquel Xr]) 400 mg PO HS [facility] Last Admin: 01/27/18 21:30 Dose: 400 mg Home Med (Quetiapine [Seroquel Xr]) 50 mg PO HS [facility] Last Admin: 01/27/18 21:30 Dose: 50 mg Piperacillin Sod/Tazobactam (Sod 3.375 gm/ Sodium Chloride) 100 mls @ 100 mls/ hr IVPB Q8@0500,1300,2100 [facility] PRN Reason: Protocol Last Admin: 01/28/18 05:41 Dose: 100 mls/hr Lactobacillus Acidophilus (Bacid Acidophilus) 1 cap PO BID [facility] Last Admin: 01/28/18 08:31 Dose: 1 cap Lactulose (Enulose) 20 gm PO DAILY PRN PRN Reason: Constipation Last Admin: 01/26/18 08:43 Dose: 20 gm Lamotrigine (Lamictal) 400 mg PO DAILY [facility] Last Admin: 01/28/18 08:32 Dose: 400 mg Levothyroxine Sodium (Synthroid) 175 mcg PO DAILY@0630 [facility] Last Admin: 01/28/18 05:41 Dose: 175 mcg Montelukast Sodium (Singulair) 10 mg PO HS [facility] Last Admin: 01/27/18 21:30 Dose: 10 mg Niacinamide (Niacinamide) 1,000 mg PO DAILY [facility] Last Admin: 01/28/18 08:33 Dose: 1,000 mg Oxycodone/Acetaminophen (Percocet 5/325 Mg Tab) 1 tab PO Q4 PRN PRN Reason: for pain level 4-7 Stop: 01/31/18 09:23 Pantoprazole Sodium (Protonix Ec Tab) 40 mg PO DAILY [facility] Last Admin: 01/28/18 08:32 Dose: 40 mg Physical Exam - Constitutional Appears: No Acute Distress - Head Exam Head Exam: ATRAUMATIC, NORMAL INSPECTION - Eye Exam Eye Exam: Normal appearance - ENT Exam ENT Exam: Mucous Membranes Moist - Respiratory Exam Additional comments: Dressing removed with some purulency noted;decreased breath sounds on the left; no wheeze, rhonchi or rales - Cardiovascular Exam Cardiovascular Exam: +S1, +S2 - GI/Abdominal Exam Additional comments: soft, with some epigastric tenderness, no guarding noted - Extremities Exam Additional comments: calves nontender; distal pulses palpable B/L - Psychiatric Exam Psychiatric exam: Normal Affect, Normal Mood - Skin Skin Exam: Dry, Intact Results - Vital Signs Recent Vital Signs: Last Vital Signs Temp 98.1 F 01/28/18 07:42 Pulse 88 01/28/18 07:42 Resp 20 01/28/18 07:42 BP 120/74 01/28/18 07:42 Pulse Ox 97 01/28/18 07:42 - Labs Result Diagrams: 01/28/18 07:31 01/28/18 07:31 Labs: Laboratory Results - last 24 hr 01/28/18 01/28/18 07:31 07:31 WBC 4.6 L RBC 3.36 L Hgb 9.1 L Hct 28.5 L MCV 84.6 MCH 27.0 MCHC 31.9 L RDW 18.5 H Plt Count 479 H MPV 6.9 L Neut % (Auto) 62.2 Lymph % (Auto) 20.2 [place] % (Auto) 11.4 H Eos % (Auto) 5.2 H Baso % (Auto) 1.0 Neut # (Auto) 2.8 Lymph # (Auto) 0.9 L [place] # (Auto) 0.5 Eos # (Auto) 0.2 Baso # (Auto) 0.0 Sodium 136 Potassium 3.4 L Chloride 103 Carbon Dioxide 26 Anion Gap 10 BUN 6 L Creatinine 0.6 L Est GFR ( Amer) > 60 Est GFR (Non-Af Amer) > 60 Random Glucose 75 Calcium 8.0 L Assessment & Plan - Assessment and Plan (Free Text) Assessment: 3 y/o M with a history of Hyperlipidemia, Hypothyroidism, and Bipolar Disorder transferred to TCU facility from [facility] for IV antibiotic continuation following a left-sided thoracotomy with decortication of an empyema seen this AM because of swelling above site of left-sided thoracotomy with some purulent drainage. 1. Pneumonia with Empyema -Wound culture obtained. Will f/u results. -Swelling above site of procedure may be apart of normal healing process. -Will consult Dr. Herrera for post-procedure f/u -Currently on IV Zosyn & PO Zithromax 2. Hypothyroidism -Levothyroxine 175mcg PO QD 3. BPD -Lamictal 400mg PO HS 4. HLD -Fenofibrate 145mg PO
--- NOTE | 2018-01-28 14:34 | CP.PCM.PN ---
Subjective - Date & Time of Evaluation Date of Evaluation: 01/28/18 Time of Evaluation: 10:00 - Subjective Subjective: no acute complaints at present Objective - Vital Signs/Intake and Output Vital Signs (last 24 hours): Temp Pulse Resp BP Pulse Ox 98.1 F 88 20 120/74 97 01/28/18 07:42 01/28/18 07:42 01/28/18 07:42 01/28/18 07:42 01/28/18 07:42 - Medications Medications: Current Medications Albuterol/Ipratropium (Duoneb 3 Mg/0.5 Mg (3 Ml) Ud) 3 ml INH RQ4 [facility] Last Admin: 01/28/18 11:20 Dose: 3 ml Azithromycin (Zithromax) 500 mg PO DAILY [facility] PRN Reason: Protocol Last Admin: 01/28/18 09:12 Dose: 500 mg Docusate Sodium (Colace) 100 mg PO BID [facility] Last Admin: 01/28/18 08:31 Dose: 100 mg Fenofibrate (Tricor) 145 mg PO QPM [facility] Last Admin: 01/27/18 17:43 Dose: 145 mg Home Med ([place]-3 Fatty Acids/Fish Oil [Fish Oil 1,000 Mg Capsule]) 2 cap PO BID [facility] Last Admin: 01/28/18 08:31 Dose: 2 cap Home Med (Quetiapine [Seroquel Xr]) 400 mg PO [facility] Last Admin: 01/27/18 21:30 Dose: 400 mg Home Med (Quetiapine [Seroquel Xr]) 50 mg PO [facility] Last Admin: 01/27/18 21:30 Dose: 50 mg Lactobacillus Acidophilus (Bacid Acidophilus) 1 cap PO BID [facility] Last Admin: 01/28/18 08:31 Dose: 1 cap Lactulose (Enulose) 20 gm PO DAILY PRN PRN Reason: Constipation Last Admin: 01/26/18 08:43 Dose: 20 gm Lamotrigine (Lamictal) 400 mg PO DAILY [facility] Last Admin: 01/28/18 08:32 Dose: 400 mg Levothyroxine Sodium (Synthroid) 175 mcg PO DAILY@0630 [facility] Last Admin: 01/28/18 05:41 Dose: 175 mcg Montelukast Sodium (Singulair) 10 mg PO [facility] Last Admin: 01/27/18 21:30 Dose: 10 mg Niacinamide (Niacinamide) 1,000 mg PO DAILY [facility] Last Admin: 01/28/18 08:33 Dose: 1,000 mg Oxycodone/Acetaminophen (Percocet 5/325 Mg Tab) 1 tab PO Q4 PRN PRN Reason: for pain level 4-7 Stop: 01/31/18 09:23 Pantoprazole Sodium (Protonix Ec Tab) 40 mg PO DAILY [facility] Last Admin: 01/28/18 08:32 Dose: 40 mg - Labs Labs: 01/28/18 07:31 01/28/18 07:31 - Head Exam Head Exam: ATRAUMATIC, NORMAL INSPECTION, NORMOCEPHALIC - Eye Exam Eye Exam: EOMI, Normal appearance, PERRL Pupil Exam: NORMAL ACCOMODATION, PERRL - ENT Exam ENT Exam: Mucous Membranes Moist, Normal Exam - Neck Exam Neck Exam: Normal Inspection - Respiratory Exam Respiratory Exam: NORMAL BREATHING PATTERN - Cardiovascular Exam Cardiovascular Exam: REGULAR RHYTHM - GI/Abdominal Exam GI & Abdominal Exam: Normal Bowel Sounds - Rectal Exam Rectal Exam: NORMAL INSPECTION - Exam External exam: NORMAL EXTERNAL EXAM - Extremities Exam Extremities Exam: Full ROM, Normal Capillary Refill - Back Exam Back Exam: NORMAL INSPECTION - Neurological Exam Neurological Exam: Alert, Awake Neuro motor strength exam: Left Upper Extremity: 3, Right Upper Extremity: 3, Left Lower Extremity: 3, Right Lower Extremity: 3 - Psychiatric Exam Psychiatric exam: Normal Affect, Normal Mood - Skin Skin Exam: Dry, Intact Assessment and Plan (1) DVT prophylaxis Status: Acute (2) Hyponatremia Status: Acute (3) Anemia Status: Chronic (4) Cavitary lesion of lung Status: Resolved (5) Pleural effusion Assessment & Plan: plan for physical, occupational therapy covering for Dr louis who returns tommorow Status: Resolved (6) Pneumonia Status: Resolved
[2018-01-28] MEDS ORDERED: Potassium Chloride 20 mEq ER Tab PO ONE (14:54)
[2018-01-28] MEDS ORDERED: POLYETHYLENE GLYCOL 3350 17 GM/Dose PACKET PO PRN (14:55)
--- NOTE | 2018-01-28 16:50 | CP.PCM.CON ---
History of Present Illness - History of Present Illness History of Present Illness: Thoracic Surgery - Dr. Herrera 52 yo M seen in TCU s/p Left Thoracotomy with decortication for empyema on 01/16 at [facility]. Pt was transferred to [place] [facility] for continued antibiotics and physical therapy. Thoracic surgery was consulted to evaluate drainage from chest tube site. Pt denies any worsening pain or discomfort to the surgical site. He has mild soreness worse after physical therapy, which is to be expected. He denies any Fevers/Chills, Shortness of Breath or Chest pain. Review of Systems - Review of Systems All systems: reviewed and no additional remarkable complaints except (as per hPI ) Past Patient History - Past Medical History & Family History Past Medical History?: Yes - Past Social History Smoking Status: Former Smoker - CARDIAC Hx Cardiac Disorders: Yes Hx Hypercholesterolemia: Yes - PULMONARY Hx Respiratory Disorders: No Other/Comment: s/p chest tube - NEUROLOGICAL Hx Neurological Disorder: No - HEENT Hx HEENT Problems: No - RENAL Hx Chronic Kidney Disease: No - ENDOCRINE/METABOLIC Hx Hypothyroidism: Yes - HEMATOLOGICAL/ONCOLOGICAL Hx Blood Disorders: No Hx Anemia: Yes Hx Blood Transfusions: Yes - INTEGUMENTARY Hx Dermatological Problems: No - MUSCULOSKELETAL/RHEUMATOLOGICAL Hx Falls: No - GASTROINTESTINAL Hx Gastrointestinal Disorders: No - GENITOURINARY/GYNECOLOGICAL Hx Genitourinary Disorders: No - PSYCHIATRIC Hx Psychophysiologic Disorder: Yes Hx Bipolar Disorder: Yes Hx Substance Use: No - SURGICAL HISTORY Hx Surgeries: No - ANESTHESIA Hx Anesthesia: Yes Hx Anesthesia Reactions: No Hx Malignant Hyperthermia: No Meds Allergies/Adverse Reactions: Allergies Allergy/AdvReac Type Severity Reaction Status Date / Time lentils Allergy Verified 01/12/18 18:02 peanut Allergy Verified 01/12/18 18:02 peas Allergy Verified 01/12/18 18:02 soybean Allergy Verified 01/12/18 18:02 [place] Allergy Uncoded 01/12/18 18:02 - Medications Medications: Current Medications Albuterol/Ipratropium (Duoneb 3 Mg/0.5 Mg (3 Ml) Ud) 3 ml INH RQ4 [facility] Last Admin: 01/28/18 15:20 Dose: Not Given Azithromycin (Zithromax) 500 mg PO DAILY [facility] PRN Reason: Protocol Last Admin: 01/28/18 09:12 Dose: 500 mg Docusate Sodium (Colace) 100 mg PO BID [facility] Last Admin: 01/28/18 16:30 Dose: 100 mg Fenofibrate (Tricor) 145 mg PO QPM [facility] Last Admin: 01/27/18 17:43 Dose: 145 mg Home Med ([place]-3 Fatty Acids/Fish Oil [Fish Oil 1,000 Mg Capsule]) 2 cap PO BID [facility] Last Admin: 01/28/18 16:31 Dose: 2 cap Home Med (Quetiapine [Seroquel Xr]) 400 mg PO [facility] Last Admin: 01/27/18 21:30 Dose: 400 mg Home Med (Quetiapine [Seroquel Xr]) 50 mg PO [facility] Last Admin: 01/27/18 21:30 Dose: 50 mg Piperacillin Sod/Tazobactam (Sod 3.375 gm/ Sodium Chloride) 100 mls @ 100 mls/ hr IVPB Q8@0500,1300,2100 [facility] PRN Reason: Protocol Lactobacillus Acidophilus (Bacid Acidophilus) 1 cap PO BID [facility] Last Admin: 01/28/18 16:30 Dose: 1 cap Lactulose (Enulose) 20 gm PO DAILY PRN PRN Reason: Constipation Last Admin: 01/26/18 08:43 Dose: 20 gm Lamotrigine (Lamictal) 400 mg PO DAILY [facility] Last Admin: 01/28/18 08:32 Dose: 400 mg Levothyroxine Sodium (Synthroid) 175 mcg PO DAILY@0630 [facility] Last Admin: 01/28/18 05:41 Dose: 175 mcg Montelukast Sodium (Singulair) 10 mg PO [facility] Last Admin: 01/27/18 21:30 Dose: 10 mg Niacinamide (Niacinamide) 1,000 mg PO DAILY [facility] Last Admin: 01/28/18 08:33 Dose: 1,000 mg Oxycodone/Acetaminophen (Percocet 5/325 Mg Tab) 1 tab PO Q4 PRN PRN Reason: for pain level 4-7 Stop: 01/31/18 09:23 Last Admin: 01/28/18 16:30 Dose: 1 tab Pantoprazole Sodium (Protonix Ec Tab) 40 mg PO DAILY [facility] Last Admin: 01/28/18 08:32 Dose: 40 mg Polyethylene Glycol (Miralax) 17 gm PO DAILY PRN PRN Reason: Constipation Physical Exam - Constitutional Appears: No Acute Distress - Head Exam Head Exam: ATRAUMATIC, NORMAL INSPECTION, NORMOCEPHALIC - Eye Exam Eye Exam: Normal appearance - ENT Exam ENT Exam: Mucous Membranes Moist - Respiratory Exam Respiratory Exam: NORMAL BREATHING PATTERN. absent: Respiratory Distress Additional comments: Left Thoracotomy incision w/ christine, C/D/I Left chest tube site inferior to the incision with good granulation tissue, no visible drainage but dressing is saturated in dark serous fluid - Neurological Exam Neurological exam: Alert, Oriented x3 - Psychiatric Exam Psychiatric exam: Normal Affect, Normal Mood - Skin Skin Exam: Dry, Intact Results - Vital Signs Recent Vital Signs: Last Vital Signs Temp 97.0 F L 01/28/18 16:31 Pulse 82 01/28/18 16:31 Resp 20 01/28/18 16:31 BP 131/89 01/28/18 16:31 Pulse Ox 98 01/28/18 16:31 - Labs Result Diagrams: 01/28/18 07:31 01/28/18 07:31 Labs: Laboratory Results - last 24 hr 01/28/18 01/28/18 07:31 07:31 WBC 4.6 L RBC 3.36 L Hgb 9.1 L Hct 28.5 L MCV 84.6 MCH 27.0 MCHC 31.9 L RDW 18.5 H Plt Count 479 H MPV 6.9 L Neut % (Auto) 62.2 Lymph % (Auto) 20.2 [place] % (Auto) 11.4 H Eos % (Auto) 5.2 H Baso % (Auto) 1.0 Neut # (Auto) 2.8 Lymph # (Auto) 0.9 L [place] # (Auto) 0.5 Eos # (Auto) 0.2 Baso # (Auto) 0.0 Sodium 136 Potassium 3.4 L Chloride 103 Carbon Dioxide 26 Anion Gap 10 BUN 6 L Creatinine 0.6 L Est GFR ( Amer) > 60 Est GFR (Non-Af Amer) > 60 Random Glucose 75 Calcium 8.0 L Assessment & Plan - Assessment and Plan (Free Text) Assessment: 52 yo M s/p Thoracotomy and decortication for empyema on 01/16/18 -Incision and chest tube site examined, no signs of infection -Drainage from the chest tube site is normal as it heals from the inside out -Continue to change dressings PRN if saturated -Will revisit for staple removal in the next few days DW Dr Javier Hicks PGY4
[2018-01-28] MEDS ORDERED: Piperacillin/Tazobact 3.375 GM in Sodium Chloride 0.9% 100 ML IVPB SCH (21:00)
[2018-01-28] MEDS: QUETIAPINE 400 MG PO SCH (22:06)
[2018-01-28] MEDS: QUETIAPINE 50 MG PO SCH (22:06)
[2018-01-29] MEDS: Albuterol-Ipratrop 3 mg / 0.5 (3 ml) UD INH SCH ×6 (00:38→19:12)
[2018-01-29] MEDS: Oxycodone/Acetaminophen 5/325 mg Tab PO PRN ×3 (00:49→23:03)
[2018-01-29] MEDS: Levothyroxine 175 MCG TAB PO SCH (06:38)
[2018-01-29] MEDS: cefTRIAXone 2 GM in Sodium Chloride 0.9% 100 ML IVPB SCH (08:29)
[2018-01-29] MEDS: Enoxaparin 40 mg Syringe SC SCH (08:30)
[2018-01-29] MEDS: FATTY ACIDS PO SCH ×2 (08:31→16:57)
[2018-01-29] MEDS: OMEGA PO SCH ×2 (08:31→16:57)
[2018-01-29] MEDS: FISH OIL PO SCH ×2 (08:31→16:57)
[2018-01-29] MEDS: Lactobacillus Acidophilus 500 MU Cap PO SCH ×2 (08:32→16:56)
[2018-01-29] MEDS: Pantoprazole 40 mg EC Tab PO SCH (08:34)
[2018-01-29] MEDS: NIACINAMIDE 500 MG TAB PO SCH (10:48)
--- NOTE | 2018-01-29 10:57 | CP.PCM.PN ---
Subjective - Date & Time of Evaluation Date of Evaluation: 01/29/18 Time of Evaluation: 10:16 - Subjective Subjective: Patient seen and examined this AM during morning rounds. S-Patient sitting up in a chair with physical therapist. He still reports pain at the site of where thoracocentesis was performed. He continues to remain afebrile, and denied any chest pain or shortness of breath. O-Vitals this AM were stable: Temp-97F, P-83, BP-128/83, RR-20 -A & O x 3, pleasant, good eye contact, cooperates with exam -Decreased breath sounds were noted over the left posterior chest wall compared to the right -Dress to left midaxillary chest wall clean, dry, and intact - s1s2 with no murmurs, rubs or gallops -Abdomen: soft with some epigastric tenderness, but no rigidity -Extremities: calves nontender, no pitting edema B/L A/P: 3 y/o M with a history of Hyperlipidemia, Hypothyroidism & Bipolar Disorder who was transferred to TCU facility from [facility] for continued IV antibiotic therapy and physical therapy post left-sided thoracotomy with decortication of an empyema. 1. Pneumonia with Empyema -Awaiting results of wound culture. -Advised to change dressing PRN. -Will continue Zithromax for Mycoplasma. -IV Vanco was started for MSSA in sputum culture. -Zosyn was discontinued & ceftriaxone was started for Strep Viridans. -Vanco trough needs to remain <15. 2. Hypothyroidism -Levothyroxine 175mcg PO QD 3. BPD -Lamictal 400mg PO HS 4. HLD -Fenofibrate 145mg PO Objective - Vital Signs/Intake and Output Vital Signs (last 24 hours): Temp Pulse Resp BP Pulse Ox 98.1 F 85 20 109/62 97 01/29/18 08:00 01/29/18 08:00 01/29/18 08:00 01/29/18 08:00 01/29/18 08:00 - Medications Medications: Current Medications Albuterol/Ipratropium (Duoneb 3 Mg/0.5 Mg (3 Ml) Ud) 3 ml INH RQ4 [facility] Last Admin: 01/29/18 07:37 Dose: 3 ml Azithromycin (Zithromax) 500 mg PO DAILY [facility] PRN Reason: Protocol Last Admin: 01/29/18 08:31 Dose: 500 mg Docusate Sodium (Colace) 100 mg PO BID [facility] Last Admin: 01/29/18 08:30 Dose: 100 mg Enoxaparin Sodium (Lovenox) 40 mg SC DAILY [facility] PRN Reason: Protocol Last Admin: 01/29/18 08:30 Dose: 40 mg Fenofibrate (Tricor) 145 mg PO QPM [facility] Last Admin: 01/28/18 17:31 Dose: 145 mg Home Med ([place]-3 Fatty Acids/Fish Oil [Fish Oil 1,000 Mg Capsule]) 2 cap PO BID [facility] Last Admin: 01/29/18 08:31 Dose: 2 cap Home Med (Quetiapine [Seroquel Xr]) 400 mg PO HS [facility] Last Admin: 01/28/18 22:06 Dose: 400 mg Home Med (Quetiapine [Seroquel Xr]) 50 mg PO HS [facility] Last Admin: 01/28/18 22:06 Dose: 50 mg Ceftriaxone Sodium 2 gm/ (Sodium Chloride) 100 mls @ 100 mls/hr IVPB DAILY [facility] PRN Reason: Protocol Last Admin: 01/29/18 08:29 Dose: 100 mls/hr Vancomycin HCl 1 gm/ Sodium (Chloride) 250 mls @ 166.667 mls/hr IVPB Q12@0500, 1700 [facility] PRN Reason: Protocol Last Admin: 01/29/18 05:23 Dose: 166.667 mls/hr Lactobacillus Acidophilus (Bacid Acidophilus) 1 cap PO BID [facility] Last Admin: 01/29/18 08:32 Dose: 1 cap Lactulose (Enulose) 20 gm PO DAILY PRN PRN Reason: Constipation Last Admin: 01/26/18 08:43 Dose: 20 gm Lamotrigine (Lamictal) 400 mg PO DAILY [facility] Last Admin: 01/29/18 08:30 Dose: 400 mg Levothyroxine Sodium (Synthroid) 175 mcg PO DAILY@0630 [facility] Last Admin: 01/29/18 06:38 Dose: 175 mcg Montelukast Sodium (Singulair) 10 mg PO HS [facility] Last Admin: 01/28/18 22:07 Dose: 10 mg Niacinamide (Niacinamide) 1,000 mg PO DAILY [facility] Last Admin: 01/29/18 10:48 Dose: 1,000 mg Oxycodone/Acetaminophen (Percocet 5/325 Mg Tab) 1 tab PO Q4 PRN PRN Reason: for pain level 4-7 Stop: 01/31/18 09:23 Last Admin: 01/28/18 20:35 Dose: 1 tab Oxycodone/Acetaminophen (Percocet 5/325 Mg Tab) 2 tab PO Q4 PRN PRN Reason: Pain, severe (8-10) Stop: 01/31/18 22:25 Last Admin: 01/29/18 00:49 Dose: 2 tab Pantoprazole Sodium (Protonix Ec Tab) 40 mg PO DAILY [facility] Last Admin: 01/29/18 08:34 Dose: 40 mg Polyethylene Glycol (Miralax) 17 gm PO DAILY PRN PRN Reason: Constipation Last Admin: 01/28/18 17:32 Dose: 17 gm - Labs Labs: 01/28/18 07:31 01/28/18 07:31
--- NOTE | 2018-01-29 17:24 | CP.PCM.PN ---
Subjective - Date & Time of Evaluation Date of Evaluation: 01/29/18 Time of Evaluation: 17:23 - Subjective Subjective: pt doing well today no complaints hd stable nad Objective - Vital Signs/Intake and Output Vital Signs (last 24 hours): Temp Pulse Resp BP Pulse Ox 97.9 F 96 H 20 126/76 97 01/29/18 16:24 01/29/18 16:24 01/29/18 16:24 01/29/18 16:24 01/29/18 16:24 - Medications Medications: Current Medications Albuterol/Ipratropium (Duoneb 3 Mg/0.5 Mg (3 Ml) Ud) 3 ml INH RQ4 [facility] Last Admin: 01/29/18 15:26 Dose: 3 ml Azithromycin (Zithromax) 500 mg PO DAILY [facility] PRN Reason: Protocol Last Admin: 01/29/18 08:31 Dose: 500 mg Docusate Sodium (Colace) 100 mg PO BID [facility] Last Admin: 01/29/18 16:56 Dose: 100 mg Enoxaparin Sodium (Lovenox) 40 mg SC DAILY [facility] PRN Reason: Protocol Last Admin: 01/29/18 08:30 Dose: 40 mg Fenofibrate (Tricor) 145 mg PO QPM [facility] Last Admin: 01/29/18 17:02 Dose: 145 mg Home Med ([place]-3 Fatty Acids/Fish Oil [Fish Oil 1,000 Mg Capsule]) 2 cap PO BID [facility] Last Admin: 01/29/18 16:57 Dose: 2 cap Home Med (Quetiapine [Seroquel Xr]) 400 mg PO HS [facility] Last Admin: 01/28/18 22:06 Dose: 400 mg Home Med (Quetiapine [Seroquel Xr]) 50 mg PO HS [facility] Last Admin: 01/28/18 22:06 Dose: 50 mg Ceftriaxone Sodium 2 gm/ (Sodium Chloride) 100 mls @ 100 mls/hr IVPB DAILY [facility] PRN Reason: Protocol Last Admin: 01/29/18 08:29 Dose: 100 mls/hr Vancomycin HCl 1 gm/ Sodium (Chloride) 250 mls @ 166.667 mls/hr IVPB Q12@0500, 1700 [facility] PRN Reason: Protocol Last Admin: 01/29/18 16:58 Dose: 166.667 mls/hr Lactobacillus Acidophilus (Bacid Acidophilus) 1 cap PO BID [facility] Last Admin: 01/29/18 16:56 Dose: 1 cap Lactulose (Enulose) 20 gm PO DAILY PRN PRN Reason: Constipation Last Admin: 01/26/18 08:43 Dose: 20 gm Lamotrigine (Lamictal) 400 mg PO DAILY [facility] Last Admin: 01/29/18 08:30 Dose: 400 mg Levothyroxine Sodium (Synthroid) 175 mcg PO DAILY@0630 [facility] Last Admin: 01/29/18 06:38 Dose: 175 mcg Montelukast Sodium (Singulair) 10 mg PO HS [facility] Last Admin: 01/28/18 22:07 Dose: 10 mg Niacinamide (Niacinamide) 1,000 mg PO DAILY [facility] Last Admin: 01/29/18 10:48 Dose: 1,000 mg Oxycodone/Acetaminophen (Percocet 5/325 Mg Tab) 1 tab PO Q4 PRN PRN Reason: for pain level 4-7 Stop: 01/31/18 09:23 Last Admin: 01/28/18 20:35 Dose: 1 tab Oxycodone/Acetaminophen (Percocet 5/325 Mg Tab) 2 tab PO Q4 PRN PRN Reason: Pain, severe (8-10) Stop: 01/31/18 22:25 Last Admin: 01/29/18 16:56 Dose: 2 tab Pantoprazole Sodium (Protonix Ec Tab) 40 mg PO DAILY [facility] Last Admin: 01/29/18 08:34 Dose: 40 mg Polyethylene Glycol (Miralax) 17 gm PO DAILY PRN PRN Reason: Constipation Last Admin: 01/28/18 17:32 Dose: 17 gm - Labs Labs: 01/28/18 07:31 01/28/18 07:31 - Constitutional Appears: Non-toxic, No Acute Distress - Head Exam Head Exam: ATRAUMATIC, NORMOCEPHALIC - Eye Exam Eye Exam: EOMI, Normal appearance, PERRL Pupil Exam: NORMAL ACCOMODATION - ENT Exam ENT Exam: Mucous Membranes Moist, Normal Oropharynx - Neck Exam Neck Exam: Full ROM, Normal Inspection - Respiratory Exam Respiratory Exam: Clear to Ausculation Bilateral, NORMAL BREATHING PATTERN - Cardiovascular Exam Cardiovascular Exam: RRR, +S1, +S2 - GI/Abdominal Exam GI & Abdominal Exam: Soft, Normal Bowel Sounds. absent: Organomegaly - Extremities Exam Extremities Exam: Normal Capillary Refill. absent: Calf Tenderness - Back Exam Back Exam: absent: CVA tenderness (L), CVA tenderness (R) - Neurological Exam Neurological Exam: Alert, Oriented x3 - Psychiatric Exam Psychiatric exam: Normal Affect, Normal Mood - Skin Skin Exam: Dry, Warm Assessment and Plan - Assessment and Plan (Free Text) Plan: 52 yo male with history of Bipolar DO, Hypothyroid and HLD was transferred from [facility] after thoracotomy with decortication and empyema evacuation for purpose of continuation of IV antibiotics. He was found to be positive for Mycoplasma IgM in the blood, Stap aureus in sputum culture and Strep viridans in lung tissue culture. He was started on IV Zosyn (to DC on ) and PO Zithromax (DC on 01/30/18). 1. Pneumonia with Empyema left lung empyema drained on 01/16/18 left lung decorticated, culture grew Strep Viridans continue IV Zosyn and PO Zithromax 2. Hypothyroid continue Levothyroxine 175mcg PO daily TSH: 0.75 3. Bipolar DO continue Seroquel XR 450mg PO HS
[2018-01-29] MEDS: QUETIAPINE 50 MG PO SCH (22:57)
[2018-01-29] MEDS: QUETIAPINE 400 MG PO SCH (23:02)
[2018-01-30] MEDS: Albuterol-Ipratrop 3 mg / 0.5 (3 ml) UD INH SCH ×3 (00:19→07:25)
[2018-01-30] MEDS: Levothyroxine 175 MCG TAB PO SCH (05:53)
[2018-01-30] MEDS: NIACINAMIDE 500 MG TAB PO SCH (09:02)
[2018-01-30] MEDS: Oxycodone/Acetaminophen 5/325 mg Tab PO PRN ×2 (09:02→15:29)
[2018-01-30] MEDS: Lactobacillus Acidophilus 500 MU Cap PO SCH (09:02)
[2018-01-30] MEDS: OMEGA PO SCH (09:03)
[2018-01-30] MEDS: Pantoprazole 40 mg EC Tab PO SCH (09:03)
[2018-01-30] MEDS: FISH OIL PO SCH (09:03)
[2018-01-30] MEDS: Enoxaparin 40 mg Syringe SC SCH (09:03)
[2018-01-30] MEDS: FATTY ACIDS PO SCH (09:03)
[2018-01-30] MEDS: cefTRIAXone 2 GM in Sodium Chloride 0.9% 100 ML IVPB SCH (09:07)
[2018-01-30] MEDS ORDERED: Albuterol 0.083% Inhal Sol (2.5 mg/3 mL) UD INH PRN (09:57)
--- NOTE | 2018-01-30 10:26 | CP.PCM.PN ---
Subjective - Date & Time of Evaluation Date of Evaluation: 01/30/18 Time of Evaluation: 10:26 - Subjective Subjective: Id Note- Pt. seen and examined today . pt. denies any fever or chills and states his breathing is much better. Objective - Vital Signs/Intake and Output Vital Signs (last 24 hours): Temp Pulse Resp BP Pulse Ox 98.1 F 91 H 20 121/78 96 01/30/18 10:04 01/30/18 10:04 01/30/18 10:04 01/30/18 10:04 01/30/18 10:04 - Medications Medications: Current Medications Albuterol Sulfate (Albuterol 0.083% Inhal [place] (2.5 Mg/3 Ml) Ud) 2.5 mg INH RQ4 PRN PRN Reason: Shortness of Breath Azithromycin (Zithromax) 500 mg PO DAILY [facility] PRN Reason: Protocol Last Admin: 01/30/18 09:03 Dose: 500 mg Docusate Sodium (Colace) 100 mg PO BID [facility] Last Admin: 01/30/18 09:03 Dose: 100 mg Enoxaparin Sodium (Lovenox) 40 mg SC DAILY [facility] PRN Reason: Protocol Last Admin: 01/30/18 09:03 Dose: 40 mg Fenofibrate (Tricor) 145 mg PO QPM [facility] Last Admin: 01/29/18 17:02 Dose: 145 mg Home Med ([place]-3 Fatty Acids/Fish Oil [Fish Oil 1,000 Mg Capsule]) 2 cap PO BID [facility] Last Admin: 01/30/18 09:03 Dose: 2 cap Home Med (Quetiapine [Seroquel Xr]) 400 mg PO HS [facility] Last Admin: 01/29/18 23:02 Dose: 400 mg Home Med (Quetiapine [Seroquel Xr]) 50 mg PO HS [facility] Last Admin: 01/29/18 22:57 Dose: 50 mg Ceftriaxone Sodium 2 gm/ (Sodium Chloride) 100 mls @ 100 mls/hr IVPB DAILY [facility] PRN Reason: Protocol Last Admin: 01/30/18 09:07 Dose: 100 mls/hr Vancomycin HCl 1 gm/ Sodium (Chloride) 250 mls @ 166.667 mls/hr IVPB Q12@0500, 1700 [facility] PRN Reason: Protocol Last Admin: 01/30/18 05:06 Dose: 166.667 mls/hr Lactobacillus Acidophilus (Bacid Acidophilus) 1 cap PO BID [facility] Last Admin: 01/30/18 09:02 Dose: 1 cap Lactulose (Enulose) 20 gm PO DAILY PRN PRN Reason: Constipation Last Admin: 01/29/18 22:56 Dose: 20 gm Lamotrigine (Lamictal) 400 mg PO DAILY [facility] Last Admin: 01/30/18 09:02 Dose: 400 mg Levothyroxine Sodium (Synthroid) 175 mcg PO DAILY@0630 [facility] Last Admin: 01/30/18 05:53 Dose: 175 mcg Montelukast Sodium (Singulair) 10 mg PO HS [facility] Last Admin: 01/29/18 22:58 Dose: 10 mg Niacinamide (Niacinamide) 1,000 mg PO DAILY [facility] Last Admin: 01/30/18 09:02 Dose: 1,000 mg Oxycodone/Acetaminophen (Percocet 5/325 Mg Tab) 1 tab PO Q4 PRN PRN Reason: for pain level 4-7 Stop: 01/31/18 09:23 Last Admin: 01/28/18 20:35 Dose: 1 tab Oxycodone/Acetaminophen (Percocet 5/325 Mg Tab) 2 tab PO Q4 PRN PRN Reason: Pain, severe (8-10) Stop: 01/31/18 22:25 Last Admin: 01/30/18 09:02 Dose: 2 tab Pantoprazole Sodium (Protonix Ec Tab) 40 mg PO DAILY [facility] Last Admin: 01/30/18 09:03 Dose: 40 mg Polyethylene Glycol (Miralax) 17 gm PO DAILY PRN PRN Reason: Constipation Last Admin: 01/28/18 17:32 Dose: 17 gm - Labs Labs: - Additional Findings Additional findings: - Constitutional Appears: No Acute Distress - Head Exam Head Exam: ATRAUMATIC - Eye Exam Eye Exam: EOMI - ENT Exam ENT Exam: Normal Oropharynx - Neck Exam Neck exam: Positive for: Full Rom - Respiratory Exam Additional comments: breath sounds heard B/L No wheezing left posterior previous chest tube site with small 2 cm opening with clear fluid discharge, no surrounding erythema, no malodor christine remain in place in superior aspect - Cardiovascular Exam Cardiovascular Exam: RRR, +S1, +S2 - GI/Abdominal Exam GI & Abdominal Exam: Normal Bowel Sounds, Soft Additional comments: Nt, ND - Extremities Exam Extremities exam: Positive for: normal inspection - Neurological Exam Neurological exam: Alert, Oriented x 3 Laboratory Results - last 72 hr 01/28/18 01/28/18 07:31 07:31 WBC 4.6 L RBC 3.36 L Hgb 9.1 L Hct 28.5 L MCV 84.6 MCH 27.0 MCHC 31.9 L RDW 18.5 H Plt Count 479 H MPV 6.9 L Neut % (Auto) 62.2 Lymph % (Auto) 20.2 [place] % (Auto) 11.4 H Eos % (Auto) 5.2 H Baso % (Auto) 1.0 Neut # (Auto) 2.8 Lymph # (Auto) 0.9 L [place] # (Auto) 0.5 Eos # (Auto) 0.2 Baso # (Auto) 0.0 Sodium 136 Potassium 3.4 L Chloride 103 Carbon Dioxide 26 Anion Gap 10 BUN 6 L Creatinine 0.6 L Est GFR ( Amer) > 60 Est GFR (Non-Af Amer) > 60 Random Glucose 75 Calcium 8.0 L Microbiology 01/28/18 14:00 Chest Gram Stain - Final 01/28/18 14:00 Chest Wound Culture - Preliminary NO GROWTH AFTER 24 HOURS Microbiology 01/18/18 17:22 Pleural Fluid Gram Stain - Final 01/18/18 17:22 Pleural Fluid Body Fluid Culture - Final No growth. 01/16/18 Unknown Lung Gram Stain - Final 01/16/18 Unknown Lung Tissue Culture - Final Streptococcus Viridans 01/16/18 Unknown Lung Gram Stain - Final 01/16/18 Unknown Lung Tissue Culture - Final Streptococcus Viridans 01/14/18 21:09 Sputum Gram Stain - Final 01/14/18 21:09 Sputum Sputum Culture - Final Staphylococcus Aureus 01/12/18 20:10 Blood-Venous Blood Culture - Final 01/12/18 20:10 Blood-Venous Gram Stain - Final NO GROWTH AFTER 5 DAYS TEST NOT PERFORMED 01/12/18 20:00 Blood-Venous Blood Culture - Final 01/12/18 20:00 Blood-Venous Gram Stain - Final NO GROWTH AFTER 5 DAYS TEST NOT PERFORMED 01/18/18 17:22 Pleural Fluid Fungal Culture - Preliminary NO FUNGUS GROWTH IN 1 WEEK. 01/18/18 17:22 Other: Please Indicate Mycobacterial Culture - Preliminary Assessment and Plan (1) Pleural effusion Status: Resolved (2) Empyema Status: Acute - Assessment and Plan (Free Text) Assessment: A/P- 52 year old male s/p left lung thoracotomy with decortication and s/p empyema evacuation ith lung tissue cx strep viridans and sputum cx MSSA and + mycsoplasma IGM serology admitted to TCU for completion of IV antibiotics from [facility] with small amount of ? purulent discharge from the left posterior lung previous Ct site. afebrile normal wbc count Ct report noted blood cx - neg x 2 from [facility] sputum cx- MSSA from [facility] Lung tissue cx- Strep.Viridans wound cx from the draining site- negative Plan- advise to d/c zithromax today , day #12 for mycoplasma treatment. was on zosyn for 11 days. advise to continue with vancomycin to trreat the MSSA in sputum cx. day #3 also advise to continue with ceftriaxone for the strep viridans treatment. day #3 keep vanco trough <15. advise 4 more days of above 2 antibiotics . pulmonary and surgical f.u for christine and scant drainage from previous ct site. all above d/w patient and he verbalizes full understanding of all above. all above also d/w .
--- NOTE | 2018-01-30 10:38 | CP.PCM.PN ---
Subjective - Date & Time of Evaluation Date of Evaluation: 01/30/18 Time of Evaluation: 09:42 - Subjective Subjective: Patient seen and examined this AM> S-Patient was laying in bed asleep. He states he is still having pain at the site of where thoracocentesis was performed. He still has some epigastric pain, but denied any chest pain or dyspnea. O-Vitals this AM are stable: Temp-97.7F, P-90, BP-119/75, RR-20, spo2 98% on room air -A & O x 3, pleasant -Decreased breath sounds over the left posterior chest wall, but slightly improved from yesterday; breath sounds over right posterior chest wall are wnl -Dressing to left midaxillary chest wall was removed; serosanginous fluid present (clean dressing applied) - s1s2 with no murmurs, rubs or gallops -Abdomen: soft with some epigastric tenderness (less than previously noted); no rigidity -Extremities: calves nontender, no pitting edema B/L A/P: 3 y/o M with a history of Hyperlipidemia, Hypothyroidism & Bipolar Disorder who was transferred to TCU facility from [facility] for continued IV antibiotic therapy and physical therapy post left-sided thoracotomy with decortication of an empyema. 1. Pneumonia with Empyema -Wound culture showed no growth. -Continue to change dressing PRN. -Will continue Zithromax for Mycoplasma. -Will continue Vanco for MSSA in sputum culture. -Will continue ceftriaxone was started for Strep Viridans. -Vanco trough needs to remain <15. 2. Hypothyroidism -Levothyroxine 175mcg PO QD 3. BPD -Lamictal 400mg PO HS 4. HLD -Fenofibrate 145mg PO Objective - Vital Signs/Intake and Output Vital Signs (last 24 hours): Temp Pulse Resp BP Pulse Ox 98.1 F 91 H 20 121/78 96 01/30/18 10:04 01/30/18 10:04 01/30/18 10:04 01/30/18 10:04 01/30/18 10:04 - Medications Medications: Current Medications Albuterol Sulfate (Albuterol 0.083% Inhal [place] (2.5 Mg/3 Ml) Ud) 2.5 mg INH RQ4 PRN PRN Reason: Shortness of Breath Azithromycin (Zithromax) 500 mg PO DAILY ISABELA PRN Reason: Protocol Last Admin: 01/30/18 09:03 Dose: 500 mg Docusate Sodium (Colace) 100 mg PO BID [facility] Last Admin: 01/30/18 09:03 Dose: 100 mg Enoxaparin Sodium (Lovenox) 40 mg SC DAILY [facility] PRN Reason: Protocol Last Admin: 01/30/18 09:03 Dose: 40 mg Fenofibrate (Tricor) 145 mg PO QPM [facility] Last Admin: 01/29/18 17:02 Dose: 145 mg Home Med ([place]-3 Fatty Acids/Fish Oil [Fish Oil 1,000 Mg Capsule]) 2 cap PO BID [facility] Last Admin: 01/30/18 09:03 Dose: 2 cap Home Med (Quetiapine [Seroquel Xr]) 400 mg PO HS [facility] Last Admin: 01/29/18 23:02 Dose: 400 mg Home Med (Quetiapine [Seroquel Xr]) 50 mg PO HS [facility] Last Admin: 01/29/18 22:57 Dose: 50 mg Ceftriaxone Sodium 2 gm/ (Sodium Chloride) 100 mls @ 100 mls/hr IVPB DAILY [facility] PRN Reason: Protocol Last Admin: 01/30/18 09:07 Dose: 100 mls/hr Vancomycin HCl 1 gm/ Sodium (Chloride) 250 mls @ 166.667 mls/hr IVPB Q12@0500, 1700 [facility] PRN Reason: Protocol Last Admin: 01/30/18 05:06 Dose: 166.667 mls/hr Lactobacillus Acidophilus (Bacid Acidophilus) 1 cap PO BID [facility] Last Admin: 01/30/18 09:02 Dose: 1 cap Lactulose (Enulose) 20 gm PO DAILY PRN PRN Reason: Constipation Last Admin: 01/29/18 22:56 Dose: 20 gm Lamotrigine (Lamictal) 400 mg PO DAILY [facility] Last Admin: 01/30/18 09:02 Dose: 400 mg Levothyroxine Sodium (Synthroid) 175 mcg PO DAILY@0630 [facility] Last Admin: 01/30/18 05:53 Dose: 175 mcg Montelukast Sodium (Singulair) 10 mg PO [facility] Last Admin: 01/29/18 22:58 Dose: 10 mg Niacinamide (Niacinamide) 1,000 mg PO DAILY [facility] Last Admin: 01/30/18 09:02 Dose: 1,000 mg Oxycodone/Acetaminophen (Percocet 5/325 Mg Tab) 1 tab PO Q4 PRN PRN Reason: for pain level 4-7 Stop: 01/31/18 09:23 Last Admin: 01/28/18 20:35 Dose: 1 tab Oxycodone/Acetaminophen (Percocet 5/325 Mg Tab) 2 tab PO Q4 PRN PRN Reason: Pain, severe (8-10) Stop: 01/31/18 22:25 Last Admin: 01/30/18 09:02 Dose: 2 tab Pantoprazole Sodium (Protonix Ec Tab) 40 mg PO DAILY ISABELA Last Admin: 01/30/18 09:03 Dose: 40 mg Polyethylene Glycol (Miralax) 17 gm PO DAILY PRN PRN Reason: Constipation Last Admin: 01/28/18 17:32 Dose: 17 gm - Labs Labs: 01/28/18 07:31 01/28/18 07:31
--- NOTE | 2018-01-30 13:42 | CP.PCM.DIS ---
Provider - Provider Date of Admission: 01/21/18 22:22 Attending physician: Christiana Melo MD Time Spent in preparation of Discharge (in minutes): 30 Hospital Course - Lab Results Lab Results: Micro Results 01/28/18 14:00 Chest Gram Stain - Final 01/28/18 14:00 Chest Wound Culture - Preliminary No growth. Most Recent Lab Values WBC 4.6 K/uL (4.8-10.8) L 01/28/18 07:31 RBC 3.36 Mil/uL (4.40-5.90) L 01/28/18 07:31 Hgb 9.1 g/dL (12.0-18.0) L 01/28/18 07: Hct 28.5 % (35.0-51.0) L 01/28/18 07: MCV 84.6 fl (80.0-94.0) 01/28/18 07: MCH 27.0 pg (27.0-31.0) 01/28/18 07: MCHC 31.9 g/dL (33.0-37.0) L 01/28/18 07:31 RDW 18.5 % (11.5-14.5) H 01/28/18 07:31 Plt Count 479 K/uL (130-400) H 01/28/18 07:31 MPV 6.9 fl (7.2-11.7) L 01/28/18 07:31 Neut % (Auto) 62.2 % (50.0-75.0) 01/28/18 07: Lymph % (Auto) 20.2 % (20.0-40.0) 01/28/18 07: Lucas % (Auto) 11.4 % (0.0-10.0) H 01/28/18 07:31 Eos % (Auto) 5.2 % (0.0-4.0) H 01/28/18 07:31 Baso % (Auto) 1.0 % (0.0-2.0) 01/28/18 07: Neut # (Auto) 2.8 K/uL (1.8-7.0) 01/28/18 07: Lymph # (Auto) 0.9 K/uL (1.0-4.3) L 01/28/18 07:31 Lucas # (Auto) 0.5 K/uL (0.0-0.8) 01/28/18 07:31 Eos # (Auto) 0.2 K/uL (0.0-0.7) 01/28/18 07:31 Baso # (Auto) 0.0 K/uL (0.0-0.2) 01/28/18 07:31 Sodium 136 mmol/l (132-148) 01/28/18 07:31 Potassium 3.4 MMOL/L (3.6-5.0) L 01/28/18 07:31 Chloride 103 mmol/L (98-107) 01/28/18 07:31 Carbon Dioxide 26 mmol/L (22-30) 01/28/18 07:31 Anion Gap 10 (10-20) 01/28/18 07:31 BUN 6 mg/dl (9-20) L 01/28/18 07:31 Creatinine 0.6 mg/dl (0.8-1.5) L 01/28/18 07:31 Est GFR ( Amer) > 60 01/28/18 07:31 Est GFR (Non-Af Amer) > 60 01/28/18 07:31 Random Glucose 75 mg/dL (75-110) 01/28/18 07:31 Calcium 8.0 mg/dL (8.4-10.2) L 01/28/18 07:31 Total Bilirubin 0.3 mg/dl (0.2-1.3) 01/22/18 05:47 AST 51 U/L (17-59) 01/22/18 05:47 ALT 53 U/L (21-72) 01/22/18 05:47 Alkaline Phosphatase 115 U/L (38-126) 01/22/18 05:47 Total Protein 5.2 G/DL (6.3-8.2) L 01/22/18 05:47 Albumin 2.2 g/dL (3.5-5.0) L 01/22/18 05:47 Globulin 3.0 gm/dL (2.2-3.9) 01/22/18 05:47 Albumin/Globulin Ratio 0.7 (1.0-2.1) L 01/22/18 05:47 - Hospital Course Hospital Course: 52 yo male with history of Bipolar DO, Hypothyroid and HLD was transferred from [facility] to TCU after thoracotomy with decortication and empyema evacuation for purpose of continuation of IV antibiotics. He was found to be positive for Mycoplasma IgM in the blood, Stap aureus in sputum culture and Strep viridans in lung tissue culture. He was started on IV Zosyn (to DC on ) and PO Zithromax (DC on 01/30/18). completed abx and tolerated PT well, stable for discharge. 1. Pneumonia with Empyema left lung empyema drained on 01/16/18 left lung decorticated, culture grew Strep Viridans continue IV Zosyn and PO Zithromax, completed 2. Hypothyroid continue Levothyroxine 175mcg PO daily TSH: 0.75 3. Bipolar DO continue Seroquel XR 450mg PO HS Discharge Exam - Head Exam Head Exam: ATRAUMATIC, NORMOCEPHALIC - Eye Exam Eye Exam: EOMI, Normal appearance, PERRL - Neck Exam Neck exam: Normal Inspection - Respiratory Exam Respiratory Exam: Clear to PA & Lateral, NORMAL BREATHING PATTERN - Cardiovascular Exam Cardiovascular Exam: RRR, +S1, +S2 - GI/Abdominal Exam GI & Abdominal Exam: Normal Bowel Sounds, Soft. absent: Organomegaly - Extremities Exam Extremities exam: normal capillary refill, pedal pulses present - Neurological Exam Neurological exam: Alert, Oriented x3 - Psychiatric Exam Psychiatric exam: Normal Affect, Normal Mood - Skin Skin Exam: Dry, Warm Discharge Plan - Follow Up Plan Condition: GOOD Disposition: TRANSF TO SNF Instructions: Pneumonia, Adult (DC), Anemia of Chronic Disease (DC), Preventing Falls, Chest Tubes Additional Instructions: PLEASE FOLLOW UP WITH DR. HERRERA FOR REMOVAL OF STEVE PLEASE REVIEW DR. PICHARDO NOTE FOR ANTIBIOTIC INSTRUCTIONS. Referrals: Fiona Pichardo MD [Staff Provider] - Hua Cabrera MD [Staff Provider] - Erich De Anda MD [Staff Provider] - Monster Herrera MD [Staff Provider] -
[2018-01-30 15:45] VITALS: BP 121/76; PULSE 89; TEMP 97.3; O2SAT 98
--- NOTE | 2018-01-30 17:16 | RAD ---
Date of service: 01/30/2018 HISTORY: empyema COMPARISON: CT chest dated 01/27/2018 TECHNIQUE: Chest PA and lateral FINDINGS: LUNGS: Left basilar postsurgical changes. PLEURA: Small left basilar loculated hydro pneumothorax. Small loculated effusion along the left lateral thoracic wall. CARDIOVASCULAR: Normal. OSSEOUS STRUCTURES: Unchanged. VISUALIZED UPPER ABDOMEN: Normal. OTHER FINDINGS: Upper extremity PICC with catheter tip at the cavoatrial junction. IMPRESSION: Small left basilar loculated hydro pneumothorax. Small loculated effusion along the left lateral thoracic wall.
== END 2018-01-30 16:00 | DRG 177 ==
LOC: H.TCU 22:22
PROVIDERS: ADMIT Internal Medicine; ATTEND Internal Medicine
PROC: F08Z1FZ Dressing Techniques Treatment using Assistive, Adaptive, Supportive or Protective Equipment (ICD-10-PCS; principal; 2018-01-21)
PROC: F08Z0FZ Bathing/Showering Techniques Treatment using Assistive, Adaptive, Supportive or Protective Equipment (ICD-10-PCS; 2018-01-21)
PROC: F07Z8FZ Transfer Training Treatment using Assistive, Adaptive, Supportive or Protective Equipment (ICD-10-PCS; 2018-01-21)
PROC: F07Z9FZ Gait Training/Functional Ambulation Treatment using Assistive, Adaptive, Supportive or Protective Equipment (ICD-10-PCS; 2018-01-21)
PROC: F07Z5FZ Bed Mobility Treatment using Assistive, Adaptive, Supportive or Protective Equipment (ICD-10-PCS; 2018-01-21)
PROC: F07L6GZ Therapeutic Exercise Treatment of Musculoskeletal System - Lower Back / Lower Extremity using Aerobic Endurance and Conditioning Equipment (ICD-10-PCS; 2018-01-21)
PROC: 5A0955Z Assistance with Respiratory Ventilation, Greater than 96 Consecutive Hours (ICD-10-PCS; 2018-01-22)
DX: J86.9 Pyothorax without fistula (principal); J18.9 Pneumonia, unspecified organism; E03.9 Hypothyroidism, unspecified; F31.9 Bipolar disorder, unspecified; E78.5 Hyperlipidemia, unspecified; Z91.010 Allergy to peanuts; Z91.018 Allergy to other foods; Z87.891 Personal history of nicotine dependence; E78.00 Pure hypercholesterolemia, unspecified; Z48.813 Encounter for surgical aftercare following surgery on the respiratory system; B95.4 Other streptococcus as the cause of diseases classified elsewhere; D63.8 Anemia in other chronic diseases classified elsewhere